=== PATIENT | male | born 1955 | race Caucasian/White ===

== ENCOUNTER → 2021-06-22 10:40 | Outpatient (CLI) | payer SELFPAY | PROVIDERS: PCP Family Medicine; Referring Provider Dermatology; Visit Provider Dermatology | DX: L40.0 Psoriasis vulgaris (principal) | CPT/HCPCS: 36415; 86480 ==

== ENCOUNTER → 2021-08-24 10:20 | Outpatient (CLI) | payer SELFPAY ==
[2021-09-01 00:07] LABS: QNTFERON TB Mitogen Value > 10.00 IU/mL (.); QNTFERON TB Nil Value 0.05 IU/mL (.); QNTFERON TB1+ Ag Value 0.05 IU/mL (.); QNTFERON TB2+ Ag Value 0.05 IU/mL (.)
[2021-09-01 14:00] LABS: QNTIFERON TB Positive Criteria Negative (Negative)
== END ==
LOC: MTLAB 10:22
PROVIDERS: PCP Family Medicine; Referring Provider Dermatology; Visit Provider Dermatology
DX: L40.0 Psoriasis vulgaris (principal)
CPT/HCPCS: 86480

== ENCOUNTER → 2024-06-11 | Outpatient (CLI) | payer OTHER, SELFPAY | END | disposition home or self-care (01) | PROVIDERS: PCP Family Medicine; Referring Provider Urology; Visit Provider Urology | DX: R30.0 Dysuria (principal) | CPT/HCPCS: 87077; 87086; 87088; 87186 ==

== ENCOUNTER → 2024-07-23 | Outpatient (CLI) | payer OTHER, SELFPAY ==
[2024-07-23 12:40] LABS: PSA,Total - Annual Screen 2.56 ng/mL (0.00-4.00)
== END | disposition home or self-care (01) ==
PROVIDERS: PCP Family Medicine; Referring Provider Nurse Practitioner; Visit Provider Nurse Practitioner
DX: Z12.5 Encounter for screening for malignant neoplasm of prostate (principal)
CPT/HCPCS: 36415; 84153; G0103

== ENCOUNTER → 2024-07-29 | Outpatient (CLI) | payer OTHER, SELFPAY ==
--- NOTE | 2024-07-29 13:10 | RAD_ITS ---
STUDY: X-RAY CHEST REASON FOR EXAM: Male, 68 years old. SOB TECHNIQUE: PA and lateral views of the chest. COMPARISON: None. FINDINGS: The lungs are clear and expanded. There is no demonstrated pleural abnormality. Normal size heart. Normal mediastinum and tammy. Normal visualized pulmonary arteries. Normal visualized aortic arch and descending thoracic aorta. Normal visualized thoracic spine. Normal visualized ribs, clavicles, and shoulders. There is no demonstrated abnormality of the visualized soft tissue structures of the upper abdomen. RAD/Chest PA and Lateral IMPRESSION: Normal x-ray examination of the chest. Electronically Signed: Cezar Wolfe MD at 14:10 EDT ,
== END | disposition home or self-care (01) ==
LOC: RAD.FUTURE 12:52 → RAD 12:53
PROVIDERS: PCP Family Medicine; Referring Provider Nurse Practitioner Family; Visit Provider Nurse Practitioner Family
DX: R06.02 Shortness of breath (principal); R22.2 Localized swelling, mass and lump, trunk
CPT/HCPCS: 71046

== ENCOUNTER 2024-08-13 09:27 | Day surgery (SDC) | payer SELFPAY, OTHER ==
[2024-08-13] VITALS (8 sets, daily range): BP systolic 79–142; BP diastolic 54–81; PULSE 72–85; RESP 16; TEMP 36.3–36.9; O2SAT 92–95; BMI 35.7
--- NOTE | 2024-08-13 | COLBX_PTH ---
PATIENT: IBETH RAGSDALE LOC: EN U#:[id number] AGE/SX: 68/M ROOM: RE08/13/[address]: Dr. Blue Hargrove MD : 1955 BED: DIS: 08/13/2024 SPEC #: [id number] RECD: 08/13/24 13:14 STATUS: RODRÍGUEZ CHANEYLuke #: [id number] ZAYNAB: 08/13/24 00:[address]: Blue Hargrove DEPT: SURGICAL PATHOLOGY RECD BY: Andre Phillips ENTERED: 08/13/24 13:15 SP TYPE: COLON BX OTHR DR: Dr. Yossi Rucker DO Tissues: A - Cecum, NOS B - Ascending colon C - Descending colon D - Sigmoid colon biopsy Procedures: Surgery Specimen Level IV HEADER OPERATION: Colonoscopy with biopsy and polypectomy PRE-OP DIAGNOSIS: Encounter for screening for malignant neoplasm of colon TISSUE SUBMITTED: A- Cecal polyps x4, B- Ascending colon polyp biopsy, C- Descending colon polyp, D- Sigmoid polyp biopsy x2 MICROSCOPIC DIAGNOSIS A. Cecal polyps x4, polypectomy: Fragments of tubular adenoma. B. Ascending colon polyp, biopsy: Fragments of tubular adenoma. C. Descending colon polyp, polypectomy: Fragments of tubular adenoma. D. Sigmoid polyps x2, biopsy: Fragments of hyperplastic polyp. 08/14 MICROSCOPIC DESCRIPTION Slides are reviewed. GROSS DESCRIPTION A. Received in fixative is one container labeled with the patient's name and designated Cecal polyp x 4 biopsy. The specimen consists of multiple irregular fragments of light swann soft tissue that in aggregate measure 2.0 x 0.5 x 0.1 cm. The specimen is totally submitted in one cassette. B. Received in fixative is one container labeled with the patient's name and designated Ascending colon polyp biopsy. The specimen consists of multiple irregular fragments of light swann soft tissue that in aggregate measure 0.6 x 0.3 x 0.1 cm. The specimen is totally submitted in one cassette. C. Received in fixative is one container labeled with the patient's name and designated Descending colon polyp biopsy. The specimen consists of two swann-pink polyps measuring 0.3 x 0.3 x 0.1cm and 0.7 x 0.5 x 0.3cm. The entire specimen is submitted in one cassette. D. Received in fixative is one container labeled with the patient's name and designated Sigmoid polyp biopsy. The specimen consists of multiple irregular fragments of light swann soft tissue that in aggregate measure 1.0 x 0.5 x 0.1 cm. The specimen is totally submitted in one cassette. SJ 08/13/2024 TC:1 CPT:42198z8
--- NOTE | 2024-08-13 10:27 | PCM.PRE.AN2 ---
ASA Classification* ASA Classification ASA Classification: 2 Assessment & Plan Anesthesia* Anesthesia Assessment Anesthesia Assessment: Discussed sedation and/or anesthesia options, risks, benefits, and alternatives with patient/parents/legal guardian/POA. Questions invited. The patient/parents/legal guardian/POA seems to understand and agrees to proceed with anesthesia plan. Reviewed the physical assessment, medical history, allergy history and patient home medications list prior to surgery/procedure/anesthetic and documented any changes. Performed airway and anesthesia risk assessments. Anesthesia Type Anesthesia Type: MAC History Source History Obtained from:: Patient and Chart Anesthesia Focused Assessment* Temperature: 98.5 F Pulse Rate: 72 Blood Pressure: 142/81 Respiratory Rate: 16 Pulse Ox: 93 Oxygen Delivery Method: Room Air Airway Assessment Mouth opens: >3 cm Mallampati Score: II Teeth Condition: Chipped/Broken (Several chipped teeth.) Neck Range of motion (ROM): Limited ROM (Somewhat decreased extension) Focused Labs Anesthesia Preop lab: CBC CHEMISTRY COAG Pre-Assessment Diagnosis/Proposed Procedure Planned Operative Procedure(s): colonoscopy Anesthesia History Anesthesia History - toggle press folder and feeder: Anesthesia History - toggle press folder and feeder Hx Hospitalization No 08/13/24 09:51 Any Problems With Anesthesia No 08/13/24 09:51 Cholinesterase deficiency No 08/13/24 09:51 You/Your Family Experience fever (hyperthermia) with Relationship Recent Exposure to Contagious No 08/13/24 09:58 Disease Does patient have nerve No 08/13/24 09:51 stimulator Patient instructed to have device shut off --Does patient have Pacemaker No 08/13/24 09:58 or ICD? When Was Last Pacemaker Check QUESTION #4 FULL TEXT: You/Your Family Experience fever (hyperthermia) with Anesthesia Last Oral Intake Last Oral intake: Last Oral Intake NPO since 07:00 08/13/24 09:58 Meds taken in AM with sips of Yes 08/13/24 09:58 water? Meds patient instructed to take am of surgery PONV PONV - toggle press folder and feeder: PONV - toggle press folder and feeder Female No 08/13/24 09:51 HX of Motion Sickness No 08/13/24 09:51 HX of N/V After Surgery Yes 08/13/24 09:51 Non-Smoker No 08/13/24 09:51 Duration of Surgery greater No 08/13/24 09:51 than 60 minutes Number of Risk Factors 1 08/13/24 09:51 PONV Score Low Risk 08/13/24 09:51 Height & Weight Height & Weight: Anesthesia: Height & Weight Height 5 ft 10 in 08/13/24 09:58 Weight: 113 kg 08/13/24 09:58 Body Mass Index (BMI) 35.7 08/13/24 09:58 Respiratory Assessment Respiratory Assessment - toggle press folder and feeder: Respiratory Tract Infection Hx - toggle press folder and feeder Hx Respiratory Tract Infection No 08/13/24 09:51 STOP Sleep Apnea STOP Sleep Apnea - toggle press folder and feeder: STOP Sleep Apnea - toggle press folder and feeder Hx Hypertension Yes 08/13/24 09:51 Hx Sleep Apnea Yes 08/13/24 09:51 CPAP No 08/13/24 09:51 BIPAP Yes 08/13/24 09:51 Do you snore loudly (louder than talking or can be heard Do you often feel tired/ fatigued/ sleepy during daytime? Has anyone observed you stop breathing during sleep? STOP Results Positive 08/13/24 09:51 QUESTION #5 FULL TEXT : Do you snore loudly (louder than talking or can be heard through closed doors)? Tobacco Use History Tobacco Use History - toggle press folder and feeder: Tobacco Use History - toggle press folder and feeder Tobacco Use Smoking Status Never smoker 08/13/24 09:51 Hx Tobacco Use No 08/13/24 09:51 Years Smoking Packs Smoked per Day Smoking Cessation Date was within the last 15 years Hx Smoking Cessation Date Hx Smoking Cessation Counseling Hematologic Medial History Hematologic Hx - toggle press folder and feeder: Hematologic Medical Hx - hand shaper Hx of Blood Transfusion No 08/13/24 09:51 Hx of Transfusion in last 3 No 08/13/24 09:51 Months Date of Last Transfusion (if within last 3 months) Ever experience any problems No 08/13/24 09:51 with transfusion(s)? Specify any problems Hx of Preganancy in last 3 N/A 08/13/24 09:51 Months Nurse Filling Out Transfusion CPARSONS 08/13/24 09:51 & Questions: Date: 08/13/24 08/13/24 09:51 Time: 09:55 08/13/24 09:51 Patient unable to answer at this time (ie. confused, unrespo /Reproduction History /Reproductive History - toggle press folder and feeder: /Reproductive Hx- toggle press folder and feeder Hx Now No 08/13/24 09:51 Gestational Age (in weeks): EDC: Hx Hx Para Hx Section SAB No 08/13/24 09:51 FORMERLY [facility], 1928–1983 Medical History Heartburn Diabetes Asthma HTN (hypertension) Home Medications ?Medication ?Instructions ?Recorded ?Last Taken ?Type hydrochlorothiazide 25 mg tablet 25 mg PO QAM 07/29/24 Unknown History lisinopril 20 mg tablet 20 mg PO QDAY 07/29/24 08/13/24 History metformin 500 mg tablet 500 mg PO TID 07/29/24 Unknown History Allergy/AdvReac Type Severity Reaction Status Date / Time No Known Allergies Allergy Verified 08/13/24 09:48 Family History Brother Diabetes Brother Hypertension CVA (cerebral vascular accident) Surgical History History of left knee replacement Social History Smoking Status: Never smoker alcohol intake: never Review of Systems (Anesthesia) ROS Narrative System reviewed and no additional complaints, except as documented.
[2024-08-13 10:31] LABS: Bedside Glucose 145 mg/dL (74-106)
--- NOTE | 2024-08-13 10:50 | PCM.HP.STD ---
HPI - General General Date of Admission: 08/13/24 Date of Service: 08/13/24 Chief Complaint: Screening colonoscopy HPI Narrative IBETH RAGSDALE, is a 68 M who presents for elective screening colonoscopy. He does have some issues with constipation. No prior colonoscopy. It sounds as though his sister had colon cancer. He denies any blood in his stools or black tarry stools. [facility] Medical History Heartburn Diabetes Asthma HTN (hypertension) Home Medications ?Medication ?Instructions ?Recorded ?Last Taken ?Type hydrochlorothiazide 25 mg tablet 25 mg PO QAM 07/29/24 Unknown History lisinopril 20 mg tablet 20 mg PO QDAY 07/29/24 08/13/24 History metformin 500 mg tablet 500 mg PO TID 07/29/24 Unknown History Allergy/AdvReac Type Severity Reaction Status Date / Time No Known Allergies Allergy Verified 08/13/24 09:48 Family History Brother Diabetes Brother Hypertension CVA (cerebral vascular accident) Surgical History History of left knee replacement Social History Smoking Status: Never smoker alcohol intake: never Vital Signs Vital Signs Vital Signs: 08/13/24 09:58 08/13/24 09:58 08/13/24 10:34 Temperature 98.5 F 98.5 F Temperature Source Temporal Pulse Rate 72 72 Respiratory Rate 16 16 Respiratory Pattern Normal Blood Pressure 142/81 H 142/81 H Blood Pressure Mean 101 Blood Pressure Source Monitor Blood Pressure Position Semi-Fowlers Blood Pressure Location Right Arm Pulse Ox 93 93 Oxygen Delivery Method Room Air Room Air Weight Weight: 249 lb 1.957 oz Body Mass Index (BMI) 35.7 Physical Exam Narrative He is alert and oriented x 3. He is in no acute distress. Head is normocephalic and atraumatic. Pupils are equal round react to light. Abdomen is soft, nontender nondistended. Results Lab / Micro Data Labs: Laboratory Results - last 24 hr 08/13/24 10:11: POC Glucose 145 H Assessment & Plan Assessment/Plan (1) Encounter for screening for malignant neoplasm of colon: PLAN: Plan The patient is a 68-year-old male with a family history of colon cancer. Have recommended a colonoscopy. We discussed the details of the planned procedure including risks benefits and alternatives. He wishes to proceed. This will begin momentarily Charges/Coding Visit Charges Inpatient E&M: 84759 Init Hosp L1
--- NOTE | 2024-08-13 11:42 | PCM.POST.ANE ---
Anesthesia: Postop Eval I Current Vital Signs Temperature: 97.3 F Pulse Rate: 81 Blood Pressure: 95/65 Respiratory Rate: 16 Pulse Ox: 95 Oxygen Delivery Method: Room Air Assessment Airway patent: Yes Spontaneous unlabored respirations: Yes Mental status: Awake and Calm nausea: No Vomiting: No Anesthesia Complication: No Fluid Hydration Crystalloid volume administer (ml): 40 Total IV fluid infused: 40 Progress Note Anesthesia document: Postop Eval 1 completed: Yes
--- NOTE | 2024-08-13 11:43 | OP.CCLET_ITS ---
08/13/2024 Yossi Rucker Re : Colonoscopy procedure for Jeison Rand Dear Chaim This procedure was performed on Tuesday, August 13, 2024. My impressions and recommendations are as follows: Impressions : - Non-bleeding hemorrhoids. - Four 3 to 6 mm polyps in the cecum, removed with a cold biopsy forceps. Resected and retrieved. - One 3 mm polyp in the ascending colon, removed with a cold biopsy forceps. Resected and retrieved. - One 8 mm polyp in the descending colon, removed with a hot snare. Resected and retrieved. - Two 3 to 4 mm polyps in the sigmoid colon, removed with a cold biopsy forceps. Resected and retrieved. - The examination was otherwise normal on direct and retroflexion views. Recommendations : - Discharge patient to home. - High fiber diet indefinitely. - Await pathology results. - Repeat colonoscopy in 3 - 5 years for surveillance. - Return to my office PRN. - Continue present medications. My findings are described in the full procedure note, which is enclosed. If I can be of further assistance, please feel free to contact me at . Sincerely, Blue Hargrove MD 08/13/2024 11:42:49 AM This report has been signed electronically.
--- NOTE | 2024-08-13 11:43 | OP.COLON_ITS ---
Patient Name: Jeison Rand Procedure Date: 08/13/2024 10:28 AM Date of : 1955 Age: 68 Procedure: Colonoscopy Indications: Screening in patient at increased risk: Family history of 1st-degree relative with colorectal cancer Providers: Blue Hargrove MD Medicines: Monitored Anesthesia Care Patient Profile: Refer to note in patient chart for documentation of history and physical. Last Colonoscopy: none. The patient's first colonoscopy is today. Refer to note in patient chart for documentation of history and physical. Complications: No immediate complications. Estimated blood loss: Minimal. Procedure: Pre-Anesthesia Assessment: - Prior to the procedure, a History and Physical was performed, and patient medications and allergies were reviewed. The patient's tolerance of previous anesthesia was also reviewed. The risks and benefits of the procedure and the sedation options and risks were discussed with the patient. All questions were answered, and informed consent was obtained. Prior Anticoagulants: The patient has taken no anticoagulant or antiplatelet agents. ASA Grade Assessment: II - A patient with mild systemic disease. After reviewing the risks and benefits, the patient was deemed in satisfactory condition to undergo the procedure. After I obtained informed consent, the scope was passed under direct vision. Throughout the procedure, the patient's blood pressure, pulse, and oxygen saturations were monitored continuously. The adult colonoscope was introduced through the anus and advanced to the cecum, identified by appendiceal orifice and ileocecal valve. The ileocecal valve, appendiceal orifice, and rectum were photographed. The entire colon was well visualized. The colonoscopy was performed without difficulty. The patient tolerated the procedure well. The quality of the bowel preparation was adequate. Moderate Sedation: See the other procedure note for documentation of moderate sedation with intraservice time. Scope In: 11:02:33 AM Scope Withdrawal Time 0 hours 21 minutes 46 seconds Scope Out: 11:31:54 AM Total Procedure Duration Time 0 hours 29 minutes 21 seconds Findings: The perianal and digital rectal examinations were normal. Pertinent negatives include normal sphincter tone. Non-bleeding hemorrhoids were found during retroflexion. The hemorrhoids were moderate. Four semi-pedunculated polyps were found in the cecum. The polyps were 3 to 6 mm in size. These polyps were removed with a cold biopsy forceps. Resection and retrieval were complete. Verification of patient identification for the specimen was done by the nurse using the patient's name, date and medical record number. Estimated blood loss was minimal. A 3 mm polyp was found in the ascending colon. The polyp was semi-sessile. The polyp was removed with a cold biopsy forceps. Resection and retrieval were complete. Verification of patient identification for the specimen was done by the nurse using the patient's name, date and medical record number. Estimated blood loss was minimal. An 8 mm polyp was found in the descending colon. The polyp was semi-pedunculated. The polyp was removed with a hot snare. Resection and retrieval were complete. Verification of patient identification for the specimen was done by the nurse using the patient's name, date and medical record number. Two sessile polyps were found in the sigmoid colon. The polyps were 3 to 4 mm in size. These polyps were removed with a cold biopsy forceps. Resection and retrieval were complete. Verification of patient identification for the specimen was done by the nurse using the patient's name, date and medical record number. Estimated blood loss was minimal. The exam was otherwise without abnormality on direct and retroflexion views. Impression: - Non-bleeding hemorrhoids. - Four 3 to 6 mm polyps in the cecum, removed with a cold biopsy forceps. Resected and retrieved. - One 3 mm polyp in the ascending colon, removed with a cold biopsy forceps. Resected and retrieved. - One 8 mm polyp in the descending colon, removed with a hot snare. Resected and retrieved. - Two 3 to 4 mm polyps in the sigmoid colon, removed with a cold biopsy forceps. Resected and retrieved. - The examination was otherwise normal on direct and retroflexion views. Recommendation: - Discharge patient to home. - High fiber diet indefinitely. - Await pathology results. - Repeat colonoscopy in 3 - 5 years for surveillance. - Return to my office PRN. - Continue present medications. Procedure Code(s): --- Professional --- 90268, Colonoscopy, flexible; with removal of tumor(s), polyp(s), or other lesion(s) by snare technique 71716, 59, Colonoscopy, flexible; with biopsy, single or multiple Diagnosis Code(s): --- Professional --- Z80.0, Family history of malignant neoplasm of digestive organs K64.9, Unspecified hemorrhoids D12.0, Benign neoplasm of cecum D12.5, Benign neoplasm of sigmoid colon D12.4, Benign neoplasm of descending colon D12.2, Benign neoplasm of ascending colon CPT copyright 2021 [employer]. All rights reserved. The codes documented in this report are preliminary and upon icd 9 coder review may be revised to meet current compliance requirements. Blue Hargrove MD 08/13/2024 11:42:49 AM This report has been signed electronically. Number of Addenda: 0 Note Initiated On: 08/13/2024 10:28 AM
--- NOTE | 2024-08-13 17:13 | PCM.POSTANE2 ---
Anesthesia Postop Eval I Sum Postop Eval Completion status Anesthesia document: Postop Eval 1 completed: Yes Anesthesia Postop Eval I Summary Anesthesia Postop Eval I Summary: Anesthesia Postop Eval I: Assessment Summary Airway patent Yes 08/13/24 11:43 [email or web address] Spontaneous unlabored Yes 08/13/24 11:43 [email or web address] respirations Mental status Awake,Calm 08/13/24 11:43 [email or web address] nausea No 08/13/24 11:43 [email or web address] Vomiting No 08/13/24 11:43 [email or web address] Anesthesia Postop Eval I: Fluid Summary Crystalloid volume administer 40 08/13/24 11:43 [email or web address] (ml) Colloids volume administered ( ml) Blood Product volume administered (ml) Total IV fluid infused 40 08/13/24 11:43 [email or web address] Anesthesia Postop Eval I: Summary Notes Anesthesia Complication No 08/13/24 11:43 [email or web address] Anesthesia Complication Comment: Post-operative progress note Anesthesia: Postop Eval II Evaluation Mental status: Awake Pain Level: 0 nausea: No Vomiting: No
== END 2024-08-13 12:42 | disposition home or self-care (01) ==
LOC: EN 09:35 → AC 09:36
PROVIDERS: PCP Family Medicine; Referring Provider Family Medicine; Visit Provider Surgery
PROC: 0DJD8ZZ Inspection of Lower Intestinal Tract, Via Natural or Artificial Opening Endoscopic (ICD-10-PCS; CPT 45378; principal; 2024-08-13 10:40)
DX: Z12.11 Encounter for screening for malignant neoplasm of colon (principal); E11.9 Type 2 diabetes mellitus without complications; D12.0 Benign neoplasm of cecum; D12.2 Benign neoplasm of ascending colon; D12.4 Benign neoplasm of descending colon; D12.5 Benign neoplasm of sigmoid colon; I10 Essential (primary) hypertension; K64.9 Unspecified hemorrhoids; Z79.84 Long term (current) use of oral hypoglycemic drugs; Z79.899 Other long term (current) drug therapy; Z80.0 Family history of malignant neoplasm of digestive organs
CPT/HCPCS: 45380; 45385; 82962; 88305; A4216; J2405

== ENCOUNTER → 2025-03-07 | Outpatient (CLI) | payer SELFPAY | END | disposition home or self-care (01) | PROVIDERS: PCP Family Medicine; Referring Provider Nurse Practitioner Family; Visit Provider Nurse Practitioner Family | DX: R06.02 Shortness of breath (principal) | CPT/HCPCS: 94060; 94726; 94729 ==

== ENCOUNTER → 2025-03-10 | Outpatient (CLI) | payer SELFPAY, OTHER | END | disposition home or self-care (01) | PROVIDERS: PCP Family Medicine; Referring Provider Nurse Practitioner Family; Visit Provider Nurse Practitioner Family | DX: G47.33 Obstructive sleep apnea (adult) (pediatric) (principal) | CPT/HCPCS: 95811 ==

== ENCOUNTER → 2025-03-25 | Outpatient (CLI) | payer SELFPAY, OTHER ==
--- NOTE | 2025-03-25 15:05 | CT_ITS ---
PROCEDURE: CHEST WITHOUT CONTRAST 03/25/2025 REASON FOR EXAM: SHORTNESS OF BREATH, NON SMOKER, NORMAL XRAY TECHNIQUE: Chest CT without contrast. Coronal and Sagittal reconstruction series were provided. One or more dose reduction techniques were used (e.g., Automated exposure control, adjustment of the mA and/or kV according to patient size, use of iterative reconstruction technique RADIATION DOSE SUMMARY: CTDlvol: 20.1 mGy DLP: 742 mGycm COMPARISON: Chest radiographs on 07/29/2024 FINDINGS: Hardware: None Lymph nodes: No thoracic lymphadenopathy. Heart and Vasculature: Normal heart size. Qxmr-ut-[id number] coronary calcifications. Enlarged main pulmonary artery measuring 3.4 cm in diameter. Ascending thoracic aorta measures 3.8 cm in diameter. Lungs and Airways: Central airways are clear. No focal consolidation. Pleura: No effusion. Upper Abdomen: A hypodense lesion arising from the right kidney is partially imaged and measures fluid density. Bones: No displaced rib fracture. There are several healed left-sided anterolateral rib fractures. Degenerative changes of the thoracic spine. Chest wall: Right-sided gynecomastia. CT/Chest without Contrast IMPRESSION: 1. Right-sided gynecomastia. Otherwise, there is no displaced rib fracture or other finding to account for the reported symptoms. 2. Enlarged main pulmonary artery, suggestive of pulmonary hypertension. 3. [id number] coronary calcifications. Reading Location: [id number]
== END | disposition home or self-care (01) ==
PROVIDERS: PCP Family Medicine; Referring Provider Nurse Practitioner Family; Visit Provider Nurse Practitioner Family
DX: R06.02 Shortness of breath (principal)
CPT/HCPCS: 71250

== ENCOUNTER → 2025-05-26 | Outpatient (CLI) | payer OTHER, SELFPAY ==
--- NOTE | 2025-05-26 10:38 | ECHOCS_ITS ---
Reason For Study Reason For Study: SOB Procedure This was a 2D Doppler, Color Flow transthoracic echocardiogram. The study was technically difficult. Exam performed in department. Left Ventricle Normal LV size. The left ventricular ejection fraction is 40 %. Stage 1 diastolic dysfunction. There is mild to moderate global hypokinesis of the left ventricle. Right Ventricle Normal RV size. Normal systolic function. Atria Bubble contrast study is negative for PFO/ASD. Mitral Valve Mild (1+) eccentric mitral valve insufficiency. Tricuspid Valve Normal tricuspid valve. Aortic Valve Trisinus/trileaflet aortic valve. Pulmonic Valve The pulmonic valve is not well visualized. Great Vessels Normal aortic root. The pulmonary artery is normal size. Inferior vena cava collapse with respiration. Pericardium/Pleural No pericardial effusion. Medication 22 gauge I.V. with prn adaptor inserted into right arm. Performed a rapid injection of agitated mix of 9 cc saline and 1cc air to assess for atrial septal defect. Diluted definity 2.0ml given slow IV push to enhance endocardial definition. MMode/2D Measurements & Calculations LVIDd: 5.6 cm IVSd: 1.0 cm Ao root diam: 3.7 cm LVIDs: 4.1 cm LVPWd: 1.2 cm RVDd: 4.1 cm FS: 26.9 % LAV(MOD-bp): 65.7 ml LVAd ap4: 45.5 cm2 LVAd ap2: 44.7 cm2 LAV(MOD-bp) Indexed: 27.7 ml/m2 LVLd ap4: 9.7 cm LVLd ap2: 9.6 cm LAV(MOD-sp2): 56.9 ml EDV(MOD-sp4): 174.0 ml EDV(MOD-sp2): 176.2 ml LAV(MOD-sp4): 65.5 ml EDV(sp4-el): 182.1 ml EDV(sp2-el): 177.1 ml LVAs ap4: 29.5 cm2 LVAs ap2: 34.2 cm2 LVLs ap4: 8.1 cm LVLs ap2: 9.4 cm ESV(MOD-sp4): 89.2 ml ESV(MOD-sp2): 108.5 ml ESV(sp4-el): 91.2 ml ESV(sp2-el): 105.7 ml EF(MOD-sp4): 48.7 % EF(MOD-sp2): 38.5 % EF(sp4-el): 49.9 % SV(MOD-sp4): 84.8 ml SV(MOD-sp2): 67.8 ml SV(sp4-el): 90.9 ml SI(MOD-sp4): 35.8 ml/m2 SI(MOD-sp2): 28.6 ml/m2 LA A4 area: 22.8 cm2 LA dimension(2D): 3.9 cm RA A4 area: 19.8 cm2 TAPSE: 2.3 cm Doppler Measurements & Calculations MV E max papito: 60.7 cm/sec Lat Peak E' Papito: 9.4 cm/sec Med Peak E' Papito: 6.7 cm/sec MV A max papito: 104.7 cm/sec E/E' lat: 6.4 E/E' med: 9.0 MV E/A: 0.58 Ao V2 max: 161.6 cm/sec LV V1 max: 135.9 cm/sec PA V2 max: 79.4 cm/sec Ao max P.4 mmHg LV V1 max P.4 mmHg Ao V2 mean: 116.8 cm/sec LV V1 mean P.3 mmHg Ao mean P.2 mmHg LV V1 mean: 96.2 cm/sec Ao V2 VTI: 38.3 cm LV V1 VTI: 27.7 cm AV (velocity ratio): 0.72 ECHO/Echo Complete W/ Contrast Interpretation Summary The left ventricular ejection fraction is 40 %. Normal LV size. Stage 1 diastolic dysfunction. There is mild to moderate global hypokinesis of the left ventricle. Contrast injection was performed. Ordering Physician: Jessica Seaman Referring Physician: Yossi Rucker Performed By: Elvira Davila RDCS
== END | disposition home or self-care (01) ==
PROVIDERS: PCP Family Medicine; Referring Provider Nurse Practitioner Family; Visit Provider Nurse Practitioner Family
DX: R06.02 Shortness of breath (principal)
CPT/HCPCS: 93306; Q9957; A4216; C8929

== ENCOUNTER 2025-06-13 10:18 | Inpatient (IN) | payer OTHER, SELFPAY ==
[2025-06-13] VITALS (16 sets, daily range): BP systolic 114–158; BP diastolic 40–90; PULSE 30–47; RESP 14–18; TEMP 36.6–36.8; O2SAT 94–100; BMI 37.5; BMI 37.4
--- NOTE | 2025-06-13 10:20 | EKG12_ITS ---
Test Reason : CHRISTOPHER Blood Pressure : */* mmHG Vent. Rate : 39 BPM Atrial Rate : 79 BPM P-R Int : 244 ms QRS Dur : 104 ms QT Int : 520 ms P-R-T Axes : 43 59 76 degrees QTcB Int : 418 ms Critical Test Result: Low HR , AV Block Sinus rhythm with 2nd degree A-V block with 2:1 A-V conduction ST & T wave abnormality, consider anterior ischemia Abnormal ECG No previous ECGs available Confirmed by INDIGO LEW, NAHEED ([id number]), research editor JAIME ELDER ([id number]) on 06/16/2025 6:33:55 AM Referred By: LOS/CHAYO Confirmed By: NAHEED SOOD MD
--- NOTE | 2025-06-13 10:41 | ED.VIS.DYS ---
HPI History of Present Illness Chief Complaint: Shortness of Breath [facility] Medical History Heartburn Diabetes Asthma HTN (hypertension) Home Medications ?Medication ?Instructions ?Recorded ?Last Taken ?Type lisinopril 20 mg tablet 20 mg PO QDAY 07/29/24 06/13/25 History metformin 500 mg tablet 500 mg PO TID 07/29/24 06/13/25 History tamsulosin 0.4 mg capsule 0.4 mg PO QHS 02/19/25 06/12/25 History Allergy/AdvReac Type Severity Reaction Status Date / Time No Known Allergies Allergy Verified 06/13/25 10:19 Family History Brother Diabetes Brother Hypertension CVA (cerebral vascular accident) Surgical History History of left knee replacement Social History Smoking Status: Never smoker alcohol intake: never EXAM Physical Exam Const Vital Signs: 06/13/25 10:18 06/13/25 10:18 06/13/25 11:00 Temperature 98.3 F Temperature Source Oral Pulse Rate 40 L 47 L Respiratory Rate 18 Respiratory Effort Normal Respiratory Depth Normal Respiratory Pattern Normal Blood Pressure 158/64 H Blood Pressure Mean 95 Pulse Ox 95 Oxygen Delivery Method Room Air Room Air 06/13/25 11:18 06/13/25 12:00 06/13/25 13:00 Temperature Temperature Source Pulse Rate 38 L 37 L 47 L Respiratory Rate 16 16 17 Respiratory Effort Respiratory Depth Respiratory Pattern Blood Pressure 129/63 H 133/55 H 151/62 H Blood Pressure Mean 85 81 91 Pulse Ox 98 98 98 Oxygen Delivery Method Room Air Room Air 06/13/25 13:07 Temperature Temperature Source Pulse Rate 47 L Respiratory Rate 17 Respiratory Effort Respiratory Depth Respiratory Pattern Blood Pressure 151/62 H Blood Pressure Mean 91 Pulse Ox 98 Oxygen Delivery Method MDM MDM MDM Narrative Medical decision making narrative: HISTORY OF PRESENT ILLNESS: Chief complaint: Shortness of breath, cough 69-year-old male history of AXEL hypertension, type 2 diabetes presents with shortness of breath and cough for 10 days. Cough is productive of white-yellow sputum. Notes some chest discomfort with cough but denies chest pain currently. Notes is worse with exertion. Denies lower extremity swelling. Denies bleeding diathesis. The patient denies recent surgery in the last 4 weeks or immobilization in the last 3 days, denies previous diagnosis of DVT or PE, hemoptysis, unilateral leg swelling or malignancy with treatment the last 6 months or palliative. No estrogen use noted. REVIEW OF SYSTEMS: Pertinent positives: Shortness of breath, cough Pertinent negatives: As per HPI PHYSICAL EXAM: Nursing triage notes reviewed, Vital signs reviewed Constitutional: please see mdm HENT: MMM Eyes: Pupils equal round and reactive to light, Extraocular muscles intact Neck: No stridor, no JVD, full neck ROM Lungs: Clear to auscultation, No wheezing or rales. No increased work of breathing, no conversational dyspnea, no accessory muscle use, no nasal flaring. No respiratory distress noted Heart: Regular rate and rhythm, No murmurs, No rubs and No gallops, 2+ distal pulses (radial, femoral, posterior tibial) in all extremities Abdomen: Soft, there is no tenderness, rigidity, rebound or guarding, no obvious peritoneal signs, no palpable pulsatile abdominal masses, no auscultated abdominal bruit : No CVAT Extremities: No edema Neuro: No new focal neurological deficits, cranial nerves II through XII intact, 5/5 strength in all present extremities. Intact sensation to light touch in all present extremities, 2+ reflexes bilateral patella tendons. Skin: No rash or lesions noted MEDICAL DECISION MAKING: Chief Complaint: please see HPI External records reviewed: Reviewed prior imaging studies: Reviewed CT scan of the chest from March 2025 which shows possible pulmonary hypertension. Reviewed echocardiogram from May 2025 which shows ejection fraction 40%, stage I diastolic dysfunction, moderate hypokinesis of left ventricle, Factors affecting care: As per HPI Social determinants of health: none History obtained from others: none Consults: Cardiology (Dr. Espinoza) [facility] Narrative: The patient was initially hemodynamically stable, bradycardic with heart rate initially 40 improving spontaneously 47, afebrile and nontoxic-appearing saturating 95% room air. Exam with clear lungs. No stigmata of CHF or VTE I considered the following differential diagnosis: Pneumonia, viral illness, anemia, electrolyte disturbance, arrhythmia, ACS, PE While I considered pulmonary embolism the patient had a low risk Wells score and as such have a low suspicion for PE at this time. No indication for CTA or D-dimer at this time. I obtained a broad lab and imaging workup to further determine if the patient was suffering from a life-threatening etiology. ALL IMAGES (IF OBTAINED) HAVE BEEN PERSONALLY REVIEWED AND INTERPRETED BY MYSELF. EKG with second-degree AV block (Mobitz type II), normal axis, no obvious ischemic changes or STEMI noted BNP within normal limits suggesting no heart failure CBC without leukocytosis, severe anemia, no thrombocytopenia. High-sensitivity troponin is negative, no evidence of myocardial ischemia Chest x-ray was read reviewed personally so showed evidence of a left lower lobe infiltrate. Radiologist agreed my interpretation. Discussed case with cardiology who recommended admission for catheterization and possible pacemaker placement. Gave IV antibiotics. Patient was transferred from the ED to the [facility] in stable condition. The patient and/or family, caregivers express understanding. The patient and/or family, caregivers agrees with the plan. Shared decision making: I will have a discussion with the patient and or visitors regarding risk/benefits of further testing or admission. They will be made aware of of the risk/benefits inherent in this decision they will be given the opportunity to voice understanding. Total critical care time today provided was at least 35 minutes. This excludes separately billable procedures. Critical care time (if documented) is secondary to the patient having high probability of clinically significant/life threatening deterioration in the patient's condition which required my urgent intervention. Impression: 1. Dyspnea 2. Second-degree AV block 3. Community-acquired pneumonia Dispo: Admit to [facility] This note was generated with too.me dictation software. It may contain incorrect words, spelling, and punctuation that were not noted in review of the chart prior to signing. Lab Data Labs: Laboratory Results - last 24 hr 06/13/25 06/13/25 09:47 12:05 WBC 10.5 RBC 5.19 Hgb 15.2 Hct 46.7 MCV 90.0 MCH 29.3 MCHC 32.5 RDW Std Deviation 43.3 RDW Coeff of Harry 13.2 Plt Count 232 MPV 11.2 Immature Gran % (Auto) 0.300 Neut % (Auto) 70.8 H Lymph % (Auto) 18.9 L [place] % (Auto) 7.9 Eos % (Auto) 1.7 Baso % (Auto) 0.4 Absolute Neuts (auto) 7.4 Absolute Lymphs (auto) 1.98 Nucleated RBC % 0 Sodium 138 Potassium 3.8 Chloride 101 Carbon Dioxide 23.2 Anion Gap 15 BUN 28 H Creatinine 1.26 H Estim Creat Clear Calc 69.49 Est GFR (MDRD) Non-Af 61 BUN/Creatinine Ratio 21.9 H Glucose 147 H Calcium 9.7 Total Bilirubin 0.75 AST 28 ALT 36 Alkaline Phosphatase 65 Troponin T High Sens 21 Troponin T Hi Sens 2 Hr 26 H NT pro BNP II 428 Total Protein 7.1 Albumin 4.0 Globulin 3.1 Albumin/Globulin Ratio 1.3 Radiography Diagnostic Testing: Clinical Impression(s) from Imaging Studies Chest X-Ray 06/13/25 11:11 IMPRESSION: Findings suggestive of atelectasis and/or infiltrate in the posterior medial segment of the left lower lobe. Reading Location: [facility] Discharge Plan Triage Chief Complaint: Shortness of Breath ED Provider: Ramon Nickerson Dx/Rx/DC Orders Primary Care Provider: eKnya Wadsworth NP
--- NOTE | 2025-06-13 11:11 | RAD_ITS ---
PROCEDURE: CHEST 1 VIEW (PORTABLE) 06/13/2025 REASON FOR EXAM: SHORTNESS OF BREATH TECHNIQUE: Frontal view of the chest. COMPARISON: Prior study dated July 29, 2024. FINDINGS: Hardware: EKG electrodes are seen. Heart: Mild cardiomegaly. Lungs: Questionable focal infiltrate in the posterior medial segment of the left lower lobe. Bones: The bones are unremarkable. Other: Degenerative changes of both shoulder joints. I suspect focal calcific tendinitis overlying the right humeral head. RAD/Chest 1 View (Portable) IMPRESSION: Findings suggestive of atelectasis and/or infiltrate in the posterior medial se gment of the left lower lobe. Reading Location: [facility]
[2025-06-13 11:26] LABS: Troponin T High Sensitivity 21 ng/L (<=22)
[2025-06-13 11:30] LABS: AST(SGOT) 28 U/L (<=37); Alanine Aminotransfer ALT/SGPT 36 U/L (<=46); Albumin, Serum 4.0 g/dL (3.4-4.8); Alkaline Phosphatase 65 U/L (40-129); Anion Gap 15 (5-15); BUN 28 mg/dL (4-19); BUN/Creat Ratio 21.9 RATIO (10-20); Calcium,Total 9.7 mg/dL (7.6-11.0); Carbon Dioxide 23.2 mmol/L (21.0-32.0); Chloride 101 mmol/L (98-108); Estimated Creatinine Clearance 69.49 ml/min (50-250); Globulin 3.1 g/dL (2.2-4.2); Glucose 147 mg/dL (70-99); Potassium 3.8 mmol/L (3.3-5.1); Pro- Brain NATRIURETIC PEPTIDE 428 pg/mL (<=900)
[2025-06-13] MEDS: Ceftriaxone 2 GM in 0.9% Normal Saline (50mL MB+) 50 ML IV (12:43)
[2025-06-13 12:47] LABS: Hematocrit 46.7 % (40-54); Hemoglobin 15.2 g/dL (13.0-16.5); Immature Granulocytes Count 0.030 X10^3/uL (0.0-0.0); Mean Corp Hgb Conc 32.5 g/dL (32-36); Mean Corpuscular Volume 90.0 fL (80-94); Mean Platelet Vol. 11.2 fl (6.2-12.0); NRBC Flagged by Analyzer 0 % (0-5); Platelet Count 232 K/mm3 (150-450); RBC Distribution Width CV 13.2 % (11.6-14.6); RBC Distribution Width SD 43.3 fl (35.1-43.9); Red Blood Count 5.19 M/mm3 (4.6-6.2); White Blood Count 10.5 K/mm3 (4.4-11.0)
[2025-06-13 12:56] LABS: Troponin T High Sens 2 HR 26 ng/L (<=22)
--- NOTE | 2025-06-13 13:08 | ED.RN ---
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 prepped and family at bedside.
--- NOTE | 2025-06-13 13:19 | PCM.HP.STD ---
HPI - General General Date of Admission: 06/13/25 Date of Service: 06/13/25 Chief Complaint: Shortness of breath with exertion and productive cough HPI Narrative IBETH RAGSDALE, is a 69 M who presented to [facility] ED on 06/09/2025 with shortness breath with exertion and productive cough. Patient is [place] male, lives at home with his family. Medical history is significant for class II obesity, AXEL, hypertension, type 2 diabetes mellitus and recently diagnosed HFrEF. He follows with our pulmonary office for AXEL and noted that his visit in early April that he been experiencing shortness of breath with exertion for some time. Echo was done on 05/26 that showed EF 40%, stage I diastolic dysfunction, mild to moderate global hypokinesis of the LV, no valvular issues, no other concerning findings. Patient presented today for worsening shortness of breath with exertion and now a productive cough for the past week or so. In the ED today he was found to have Mobitz type II heart block with heart rate in the 30s to 40s. He was normotensive. Was otherwise afebrile and stable on room air at rest. Chest x-ray showed findings suggestive of atelectasis versus infiltrate in the posterior left lower lobe. CBC was benign, no leukocytosis. BMP with creatinine 1.26, baseline unknown, was otherwise benign. BNP normal. Troponin trend 21 > 26. Case was discussed with cardiology who took patient down to the [facility] for left heart catheterization to evaluate for coronary disease. Dr. Espinoza called me shortly after the cath was done and noted patient has no significant coronary artery disease. Admission orders were then placed and patient was taken to the PCU. I saw the patient in the PCU shortly after he arrived there, several family members present. Patient was mildly fatigued appearing but otherwise laying back comfortably in bed, conversing normally, in no acute distress. Denied any chest pain or discomfort, shortness of breath at rest or fever/chills. He tolerated the heart cath well. Denies any lower extremity swelling. Importantly, Dr. Espinoza did note to me that Lyme disease is a possible cause of heart block and should be ruled out for the patient. Patient denies spending much time in the [place] or known tick bites and also denies any recent rashes. However, he does report right knee pain and swelling about 2 weeks ago that came up fairly quickly and then seem to resolve on its own. Has also felt more fatigued than his normal over the past few weeks. No other acute concerns currently. [facility] Medical History Heartburn Diabetes Asthma HTN (hypertension) Home Medications ?Medication ?Instructions ?Recorded ?Last Taken ?Type lisinopril 20 mg tablet 20 mg PO QDAY bp 07/29/24 06/13/25 08:17 History metformin 500 mg tablet 500 mg PO BID diabetes 07/29/24 06/13/25 08:18 History tamsulosin 0.4 mg capsule 0.4 mg PO QHS urine flow 02/19/25 06/12/25 History curlin 1 cap PO DAILY herbal diabetic med 06/13/25 Unknown History Allergy/AdvReac Type Severity Reaction Status Date / Time No Known Allergies Allergy Verified 06/13/25 10:19 Family History Brother Diabetes Brother Hypertension CVA (cerebral vascular accident) Surgical History History of left knee replacement Social History (Updated 06/13/25 @ 14:53 by Maria Dolores Ramos) Smoking Status: Never smoker alcohol intake: never ROS Constitutional Constitutional: Reports fatigue; Denies chills, fever(s) or weakness Eyes Eyes: Denies change in vision Cardiovascular Cardiovascular: Reports dyspnea on exertion; Denies chest pain, edema, lightheadedness or palpitations Respiratory/Chest Respiratory/Chest: Reports cough, productive cough and shortness of breath with exertion; Denies shortness of breath at rest or wheezing Gastrointestinal Gastrointestinal: Denies abdominal pain, constipation, diarrhea, nausea or vomiting Musculoskeletal Musculoskeletal: Denies arthralgias or myalgias Neurologic Neurologic: Denies dizziness, focal weakness, headache(s), numbness or tingling Vital Signs Vital Signs Vital Signs: 06/13/25 10:18 06/13/25 10:18 06/13/25 11:00 Temperature 98.3 F Temperature Source Oral Pulse Rate 40 L 47 L Respiratory Rate 18 Respiratory Effort Normal Respiratory Depth Normal Respiratory Pattern Normal Blood Pressure 158/64 H Blood Pressure Mean 95 Pulse Ox 95 Oxygen Delivery Method Room Air Room Air 06/13/25 11:18 06/13/25 12:00 06/13/25 13:00 Temperature Temperature Source Pulse Rate 38 L 37 L 47 L Respiratory Rate 16 16 17 Respiratory Effort Respiratory Depth Respiratory Pattern Blood Pressure 129/63 H 133/55 H 151/62 H Blood Pressure Mean 85 81 91 Pulse Ox 98 98 98 Oxygen Delivery Method Room Air Room Air 06/13/25 13:07 Temperature Temperature Source Pulse Rate 47 L Respiratory Rate 17 Respiratory Effort Respiratory Depth Respiratory Pattern Blood Pressure 151/62 H Blood Pressure Mean 91 Pulse Ox 98 Oxygen Delivery Method Weight Weight: 118.9 kg Body Mass Index (BMI) 37.5 Physical Exam Const alert, oriented x3 and no apparent distress Constitutional Narrative: Pleasant elderly [place] male, class II obesity, mildly fatigued appearing but otherwise laying back comfortably in bed, conversing normally, in no acute distress. General Appearance: cooperative and comfortable HEENT normocephalic, head/scalp atraumatic, hearing grossly normal bilaterally, nasal mucous membranes and turbinates normal and moist oral mucous membranes Eyes PERRL, EOMs intact bilaterally and conjunctivae normal Neck full ROM Chest inspection of chest normal Resp normal respiratory effort and no use of accessory muscles Resp Narrative: Breathing comfortably on room air at rest. Mildly diminished breath sounds in bilateral lung bases, otherwise good air movement throughout with no wheezing or crackles noted. Cardio no murmurs and peripheral pulses 2+ throughout Cardio Narrative: Bradycardic, regular rhythm. GI normal to inspection, nondistended, normoactive bowel sounds, soft to palpation, non-tender and non-distended Back/Spine normal ROM Extremity normal to inspection, full ROM and no pedal edema Skin no rashes or lesions noted Psych mental status grossly normal Results Lab / Micro Data 06/13/25 09:47 06/13/25 09:47 Labs: Laboratory Results - last 24 hr 06/13/25 09:47: WBC 10.5, RBC 5.19, Hgb 15.2, Hct 46.7, MCV 90.0, MCH 29.3, MCHC 32.5, RDW Std Deviation 43.3, RDW Coeff of Harry 13.2, Plt Count 232, MPV 11.2, Immature Gran % (Auto) 0.300, Neut % (Auto) 70.8 H, Lymph % (Auto) 18.9 L, [place] % (Auto) 7.9, Eos % (Auto) 1.7, Baso % (Auto) 0.4, Absolute Neuts (auto) 7.4, Absolute Lymphs (auto) 1.98, Nucleated RBC % 0, Sodium 138, Potassium 3.8, Chloride 101, Carbon Dioxide 23.2, Anion Gap 15, BUN 28 H, Creatinine 1.26 H, Estim Creat Clear Calc 69.49, Est GFR (MDRD) Non-Af 61, BUN/Creatinine Ratio 21.9 H, Glucose 147 H, Calcium 9.7, Total Bilirubin 0.75, AST 28, ALT 36, Alkaline Phosphatase 65, Troponin T High Sens 21, NT pro BNP II 428, Total Protein 7.1, Albumin 4.0, Globulin 3.1, Albumin/Globulin Ratio 1.3 06/13/25 12:05: Troponin T Hi Sens 2 Hr 26 H Imaging Radiology Impression Chest X-Ray 06/13/25 11:11 IMPRESSION: Findings suggestive of atelectasis and/or infiltrate in the posterior medial segment of the left lower lobe. Reading Location: [id number] Assessment & Plan Assessment/Plan (1) Partial atrioventricular block with 2:1 ratio determined by electrocardiography: PLAN: Plan Patient is a 69-year-old male who presented [facility] ED on 06/13/2025 with worsening shortness of breath with exertion and productive cough. 1. Mobitz type II heart block ? Admit under inpatient status to PCU. Cardiology following. Bradycardic in the ED and EKG consistent with 2:1 AV block. Left heart cath done on admit that showed no significant CAD. Per cardiology, with concern for pneumonia as below and stable blood pressure in setting of 2:1 AV block, will tentatively plan for pacemaker placement on Monday. Lyme disease cannot be ruled out as possible cause; patient with no known tick bite or rash recently but did have unexplained right knee pain a few weeks ago that resolved on its own. Treating with doxycycline as noted below. Continue cardiac monitoring. Lipid panel ordered. Per cardiology, will initiate atorvastatin and plan to initiate baby aspirin on discharge. 2. Concern for community-acquired pneumonia ? Chest x-ray on admit showed findings suggestive of atelectasis versus infiltrate in the posterior left lower lobe, and patient reported cough with yellow sputum for about 1 week. Afebrile, no leukocytosis. Sputum culture ordered. Will empirically treat with p.o. doxycycline given concern for Lyme disease as above. 3. Recently diagnosed HFrEF, hypertension ? Recent echo on 05/26 showed EF 40%, stage I diastolic dysfunction, mild to moderate global hypokinesis of the LV, no valvular issues, no other concerning findings. Normotensive on admit. BNP normal, euvolemic on exam and stable on room air at rest, no concern for heart failure exacerbation. Given heart block as above, will hold home lisinopril for now. Chronic medical conditions: ? Class II obesity with AXEL: Follows with outpatient pulmonology. BMI 37 on admit. Complicates hospital course and care. Continue home PAP therapy at night. ? BPH with obstructive symptoms: Continue home Flomax. ? Type 2 diabetes mellitus: A1c ordered. Blood glucose 145 on admit. Hold home metformin and will treat with sliding scale insulin with meals while inpatient. DVT prophylaxis: Lovenox CODE STATUS: Full code, verified Expected disposition: Home, TBD Total clinical time spent by myself addressing the patient's medical issues, reviewing all the data, and collaborating with patient's care team: 75 minutes. Charges/Coding Visit Charges Inpatient E&M: 53741 Init Hosp L3
--- NOTE | 2025-06-13 14:52 | PCM.CONS.C ---
Assessment & Plan Assessment/Plan (1) Shortness of breath: (2) Bradycardia: (3) Partial atrioventricular block with 2:1 ratio determined by electrocardiography: (4) Chest tightness: (5) LV dysfunction: PLAN: Plan Patient has shortness of breath and also exertional chest tightness. He has LV dysfunction by echo done earlier this month. Patient underwent coronary angiography to see if he has significant CAD that could explain his symptoms and 2-1 AV block. Coronary angiography did not reveal significant CAD. He had mild CAD that can be treated medically. Patient may end up requiring a permanent pacemaker. However he may be having pneumonia at this time and it is reasonable not to proceed with permanent pacemaker today. He may require it later this admission. In view of his LV dysfunction and bradycardia in the absence of CAD it is also reasonable to consider checking for Lyme disease. Recommend starting the patient on aspirin 81 mg p.o. daily and statin. The aspirin can be started at the time of discharge. Once the pneumonia issue is resolved, if the patient continues to have an indication for a pacemaker then we can consider permanent pacemaker placement during this admission. HPI Consult Data Date of Consult: 06/13/25 HPI Narrative Reason for Consultation: Shortness of breath, bradycardia HPI Narrative: IBETH RAGSDALE, is a 69 M who presents with shortness of breath. Patient has been having shortness of breath on and off for few months. Last night it became particularly worse and this morning he went to see his primary care physician who sent him to the ER because of significant bradycardia. Patient was found to have 2:1 AV block with a heart rate of around 36 bpm. Patient states that he has some chest tightness on exertion. His shortness of breath is mainly with exertion. He denies any orthopnea. For the last 10 days patient has been having a cough with yellow sputum. His chest x-ray done today was suspicious for pneumonia. [facility] Medical History Heartburn Diabetes Asthma HTN (hypertension) Home Medications ?Medication ?Instructions ?Recorded ?Last Taken ?Type lisinopril 20 mg tablet 20 mg PO QDAY 07/29/24 06/13/25 History metformin 500 mg tablet 500 mg PO TID 07/29/24 06/13/25 History tamsulosin 0.4 mg capsule 0.4 mg PO QHS 02/19/25 06/12/25 History Allergy/AdvReac Type Severity Reaction Status Date / Time No Known Allergies Allergy Verified 06/13/25 10:19 Family History Brother Diabetes Brother Hypertension CVA (cerebral vascular accident) Surgical History History of left knee replacement Social History Smoking Status: Never smoker alcohol intake: never Physical Exam Const alert and oriented x3 HEENT normocephalic Eyes no scleral icterus Resp normal respiratory effort Cardio regular rate Extremity no pedal edema Charges/Coding Visit Charges Inpatient E&M: 20320 Init Hosp L2 Objective Data Vital Signs: Vital Signs Temp Pulse Resp BP Pulse Ox O2 Del Method 97.8 F 36 L 15 153/69 H 98 Room Air 06/13/25 14:06/13/25 14:06/13/25 14:06/13/25 14:06/13/25 14:06/13/25 14:25 Oxygen Delivery Method Room Air Weight: 260 lb 12.909 oz Body Mass Index (BMI) 37.4 Lab / Micro Data 06/13/25 09:47 06/13/25 09:47 Labs: Laboratory Results - last 24 hr 06/13/25 09:47: WBC 10.5, RBC 5.19, Hgb 15.2, Hct 46.7, MCV 90.0, MCH 29.3, MCHC 32.5, RDW Std Deviation 43.3, RDW Coeff of Harry 13.2, Plt Count 232, MPV 11.2, Immature Gran % (Auto) 0.300, Neut % (Auto) 70.8 H, Lymph % (Auto) 18.9 L, [place] % (Auto) 7.9, Eos % (Auto) 1.7, Baso % (Auto) 0.4, Absolute Neuts (auto) 7.4, Absolute Lymphs (auto) 1.98, Nucleated RBC % 0, Sodium 138, Potassium 3.8, Chloride 101, Carbon Dioxide 23.2, Anion Gap 15, BUN 28 H, Creatinine 1.26 H, Estim Creat Clear Calc 69.49, Est GFR (MDRD) Non-Af 61, BUN/Creatinine Ratio 21.9 H, Glucose 147 H, Calcium 9.7, Total Bilirubin 0.75, AST 28, ALT 36, Alkaline Phosphatase 65, Troponin T High Sens 21, NT pro BNP II 428, Total Protein 7.1, Albumin 4.0, Globulin 3.1, Albumin/Globulin Ratio 1.3 06/13/25 12:05: Troponin T Hi Sens 2 Hr 26 H Cardiology Labs/Tests 06/13/25 09:47: WBC 10.5, RBC 5.19, Hgb 15.2, Hct 46.7, MCV 90.0, MCH 29.3, MCHC 32.5, Plt Count 232, MPV 11.2, Immature Gran % (Auto) 0.300, Neut % (Auto) 70.8 H, Lymph % (Auto) 18.9 L, [place] % (Auto) 7.9, Eos % (Auto) 1.7, Baso % (Auto) 0.4, Absolute Neuts (auto) 7.4, Nucleated RBC % 0, Sodium 138, Potassium 3.8, Chloride 101, Carbon Dioxide 23.2, Anion Gap 15, BUN 28 H, Creatinine 1.26 H, Est GFR (MDRD) Non-Af 61, BUN/Creatinine Ratio 21.9 H, Glucose 147 H, Calcium 9.7, Total Bilirubin 0.75 Rhythm: EKG: ECHO: Stress Test: Cardiac Cath: PCI: CT Surgery: Holter monitor: EPS: PPM: CXR: Chest CT Scan: Radiography Diagnostic Testing: Radiology Impression Chest X-Ray 06/13/25 11:11 IMPRESSION: Findings suggestive of atelectasis and/or infiltrate in the posterior medial segment of the left lower lobe. Reading Location: [id number] Risk Score for UA/STEMI Assesmment (YES = 1) Risk Stratification Applicable: No
[2025-06-13 15:33] LABS: Troponin T High Sens 4 HR 21 ng/L (<=22)
[2025-06-13] MEDS: Azithromycin 500 MG in Dextrose 5%-Water (250mL Bag) 250 ML 250 MG IV (15:41)
[2025-06-13 15:45] LABS: Procalcitonin 0.17 ng/mL (<=0.10)
[2025-06-14] VITALS (7 sets, daily range): BP systolic 113–154; BP diastolic 53–99; PULSE 33–39; RESP 15–18; TEMP 36.5–37.1; O2SAT 92–96
[2025-06-14 06:59] LABS: Hematocrit 47.0 % (40-54); Hemoglobin 15.2 g/dL (13.0-16.5); Mean Corp Hgb Conc 32.3 g/dL (32-36); Mean Corpuscular Volume 90.6 fL (80-94); Mean Platelet Vol. 10.5 fl (6.2-12.0); Platelet Count 211 K/mm3 (150-450); RBC Distribution Width CV 13.0 % (11.6-14.6); RBC Distribution Width SD 43.0 fl (35.1-43.9); Red Blood Count 5.19 M/mm3 (4.6-6.2); White Blood Count 8.5 K/mm3 (4.4-11.0)
[2025-06-14 07:26] LABS: Anion Gap 13 (5-15); BUN 19 mg/dL (4-19); BUN/Creat Ratio 16.9 RATIO (10-20); Calcium,Total 9.4 mg/dL (7.6-11.0); Carbon Dioxide 25.3 mmol/L (21.0-32.0); Chloride 102 mmol/L (98-108); Cholesterol 133 mg/dL (<=200); Estimated Creatinine Clearance 76.60 ml/min (50-250); Glucose 128 mg/dL (70-99); Low Density Lipoprotein Calc. 74 mg/dL; Potassium 4.1 mmol/L (3.3-5.1); Triglycerides 71 mg/dL; Very Low Density Lipoprotein 14 mg/dL (5-40); cholesterol:hdl ratio screen 2.98
--- NOTE | 2025-06-14 10:30 | CASEMGMT ---
TUNDE [place]ENTON Assessment Face to Face with patient for initial transition planning/care coordination assessment. RN ELICEO introduced self and role at [facility], pt voices understanding. Pt is A&Ox4 and is resting comfortably in bed and is calm. Pt's and daughter @ bedside. Care providers, pharmacy, and demographics verified. Admitting dx: Mobitz II Heart Block, SOB with Exertion LACE Strata: 1 PCP: Kenya Wadsworth Specialists: [facility], [facility] Preferred Pharmacy: [facility] [place] Insurance: [employer] listed. Pt reports that he has [employer] Prescription Benefit: States none. CM to follow for Rx costs @ [place] LNOK: Jasmina (W), Corie (Daughter) Living Arrangements: Pt lives with his and daughter in a 2 story home with a ramp to enter ADLs/IADLs: Indep. 6-Click score is 24. Pt denies needing any additional therapy Transportation:Pt reports that he uses [facility] Transportation Services mainly. CM to follow for transport @ [place] DME: CPAP @ [facility] with no additional oxygen. BGM with sufficient supplies. Cane. HHC/SNF: Denies hx or needs Pt?s goal: Home Plan: Anticipate DC home with family once medically ready. Follow rx costs and transportation needs. Per the hospitalist, plan is for Pacer placement Monday. Lyme disease R/O. Pt denies further questions or concerns at this time and states that he feels safe retuning home with his family at the time of DC. Patel Rand RN, CM
--- NOTE | 2025-06-14 11:40 | EKG12_ITS ---
Test Reason : AM EKG Blood Pressure : */* mmHG Vent. Rate : 36 BPM Atrial Rate : 73 BPM P-R Int : 230 ms QRS Dur : 112 ms QT Int : 496 ms P-R-T Axes : -3 75 134 degrees QTcB Int : 383 ms Critical Test Result: Low HR , AV Block Sinus rhythm with 2nd degree A-V block with 2:1 A-V conduction Nonspecific ST and T wave abnormality Abnormal ECG When compared with ECG of 14-Jun-2025 11:47, MANUAL COMPARISON REQUIRED DATA IS UNCONFIRMED Confirmed by DEO LEW, REY ([id number]), staff editor ALLAN PINEDO ([id number]) on 06/17/2025 6:09:09 AM Referred By: STEPHANIE Confirmed By: REY DESOUZA MD
--- NOTE | 2025-06-14 13:24 | PCM.PN.CARD ---
Subjective Subjective Cough has improved. Patient does not have shortness of breath at baseline. He does have some exertional shortness of breath at this time. Continues to remain in 2-1 AV block. Objective Data Vital Signs: Vital Signs Temp Pulse Resp BP Pulse Ox O2 Del Method 97.7 F L 33 L 15 113/53 L 92 Room Air 06/14/25 03:22 06/14/25 03:22 06/14/25 03:22 06/14/25 03:22 06/14/25 03:22 06/14/25 07:50 Oxygen Delivery Method Room Air Weight: 260 lb 12.909 oz Body Mass Index (BMI) 37.4 Intake & Output: Intake and Output for Last 24 Hours 06/12/25 06/13/25 06/14/25 23:59 23:59 23:59 Intake Total 700 / 700 480 / 480 Balance 700 / 700 480 / 480 Lab / Micro Data 06/14/25 06:35 06/14/25 06:35 Labs: Laboratory Results - last 24 hr 06/13/25 09:47: Hemoglobin A1c 7.8 H, Procalcitonin 0.17 H 06/13/25 15:11: Troponin T Hi Sens 4Hr 21 06/13/25 16:37: POC Glucose 128 H 06/13/25 20:46: POC Glucose 167 H 06/14/25 06:35: WBC 8.5, RBC 5.19, Hgb 15.2, Hct 47.0, MCV 90.6, MCH 29.3, MCHC 32.3, RDW Std Deviation 43.0, RDW Coeff of Harry 13.0, Plt Count 211, MPV 10.5, Sodium 140, Potassium 4.1, Chloride 102, Carbon Dioxide 25.3, Anion Gap 13, BUN 19, Creatinine 1.14, Estim Creat Clear Calc 76.60, Est GFR (MDRD) Non-Af 69, BUN/Creatinine Ratio 16.9, Glucose 128 H, Calcium 9.4, Triglycerides 71, Cholesterol 133, LDL Cholesterol, Calc 74, VLDL Cholesterol 14, HDL Cholesterol 45, Cholesterol/HDL Ratio 2.98 06/14/25 06:39: POC Glucose 137 H 06/14/25 12:13: POC Glucose 127 H Cardiology Labs/Tests 06/13/25 09:47: Hemoglobin A1c 7.8 H 06/14/25 06:35: WBC 8.5, RBC 5.19, Hgb 15.2, Hct 47.0, MCV 90.6, MCH 29.3, MCHC 32.3, Plt Count 211, MPV 10.5, Sodium 140, Potassium 4.1, Chloride 102, Carbon Dioxide 25.3, Anion Gap 13, BUN 19, Creatinine 1.14, Est GFR (MDRD) Non-Af 69, BUN/Creatinine Ratio 16.9, Glucose 128 H, Calcium 9.4, Triglycerides 71, Cholesterol 133, VLDL Cholesterol 14, HDL Cholesterol 45, Cholesterol/HDL Ratio 2.98 Rhythm: EKG: ECHO: Stress Test: Cardiac Cath: PCI: CT Surgery: Holter monitor: EPS: PPM: CXR: Chest CT Scan: Physical Exam Const alert and oriented x3 HEENT normocephalic Eyes no scleral icterus Resp normal respiratory effort and clear to auscultation bilaterally Cardio regular rate Extremity no pedal edema Assessment & Plan Assessment/Plan (1) Shortness of breath: (2) Bradycardia: (3) Partial atrioventricular block with 2:1 ratio determined by electrocardiography: (4) Chest tightness: (5) LV dysfunction: PLAN: Plan Patient has shortness of breath and also exertional chest tightness. He has LV dysfunction by echo done earlier this month. Patient underwent coronary angiography to see if he has significant CAD that could explain his symptoms and 2-1 AV block. Coronary angiography did not reveal significant CAD. He had mild CAD that can be treated medically. Likely pacemaker early next week. Charges/Coding Visit Charges Inpatient E&M: 37164 Init Hosp L1
--- NOTE | 2025-06-14 14:34 | PCM.PN.HOSP ---
Reason for Visit Chief Complaint: Shortness of breath with exertion and productive cough Subjective Subjective Patient was seen and examined today, he remains in a 2-1 second-degree AV block at a rate of about 35-40, patient is asymptomatic at this time. I talked with the patient and his family who are in the room at the time of my examination. I reviewed the patient's chest x-ray, I am not concerned with the diagnosis of pneumonia although I have elected to keep the patient on oral antibiotics for now, patient has no fever, chills, or cough. Objective Data Objective Data Vital Signs: Vital Signs Temp Pulse Resp BP Pulse Ox O2 Del Method 97.7 F L 33 L 15 113/53 L 92 Room Air 06/14/25 03:22 06/14/25 03:22 06/14/25 03:22 06/14/25 03:22 06/14/25 03:22 06/14/25 07:50 Oxygen Delivery Method Room Air Weight: 118.3 kg Body Mass Index (BMI) 37.4 Intake & Output: Intake and Output for Last 24 Hours 06/12/25 06/13/25 06/14/25 23:59 23:59 23:59 Intake Total 700 / 700 480 / 480 Balance 700 / 700 480 / 480 Lab / Micro Data 06/14/25 06:35 06/14/25 06:35 Labs: Laboratory Results - last 24 hr 06/13/25 09:47: Hemoglobin A1c 7.8 H, Procalcitonin 0.17 H 06/13/25 15:11: Troponin T Hi Sens 4Hr 21 06/13/25 16:37: POC Glucose 128 H 06/13/25 20:46: POC Glucose 167 H 06/14/25 06:35: WBC 8.5, RBC 5.19, Hgb 15.2, Hct 47.0, MCV 90.6, MCH 29.3, MCHC 32.3, RDW Std Deviation 43.0, RDW Coeff of Harry 13.0, Plt Count 211, MPV 10.5, Sodium 140, Potassium 4.1, Chloride 102, Carbon Dioxide 25.3, Anion Gap 13, BUN 19, Creatinine 1.14, Estim Creat Clear Calc 76.60, Est GFR (MDRD) Non-Af 69, BUN/Creatinine Ratio 16.9, Glucose 128 H, Calcium 9.4, Triglycerides 71, Cholesterol 133, LDL Cholesterol, Calc 74, VLDL Cholesterol 14, HDL Cholesterol 45, Cholesterol/HDL Ratio 2.98 06/14/25 06:39: POC Glucose 137 H 06/14/25 12:13: POC Glucose 127 H Physical Exam Const alert, oriented x3, no apparent distress and healthy appearing General Appearance: cooperative, well kempt and well developed Orientation / Consciousness: awake, oriented to person, oriented to place and oriented to time HEENT normocephalic, head/scalp atraumatic and moist oral mucous membranes Eyes PERRL, EOMs intact bilaterally and conjunctivae normal Neck supple, no JVD, thyroid normal and no carotid bruits General: trachea midline Resp normal respiratory effort, no retractions, no use of accessory muscles and clear to auscultation bilaterally Auscultation: Negative for rales, rhonchi or wheezes Cardio regular rate, regular rhythm, S1 normal heart sound, S2 normal heart sound, no murmurs, no rub and no gallops Cardio Narrative: Patient is bradycardic, monitor shows a 2-1 AV block GI normal to inspection, nondistended, normoactive bowel sounds, soft to palpation, non-tender and non-distended Extremity no clubbing, cyanosis or edema Skin no rashes or lesions noted General Skin Exam: no breakdown Neuro oriented x3, CN's II-XII intact bilaterally, no focal motor deficits and no sensory deficits noted Sensorium / Orientation: awake and alert Speech: speech normal Psych affect normal Assessment & Plan Assessment/Plan (1) Bradycardia: PLAN: Plan 1. 2 1 AV block with bradycardia-patient will have a pacemaker inserted on 06/16/2025. #2 atelectasis versus pneumonic infiltrate in the posterior medial segment of the left lower lobe-I have elected to keep the patient on doxycycline for now #3 BPH-patient is on Flomax #4 type 2 diabetes-patient is on fingerstick blood sugars with sliding scale insulin #5 hyperlipidemia-patient is on Lipitor #6 essential hypertension-patient's lisinopril is being held at this time due to normal blood pressure. Total clinical time spent by myself addressing the patient's medical issues, reviewing all of his data, and collaborating with the patient's care team: 35 minutes Charges/Coding Visit Charges Inpatient E&M: 38399 Subs Hosp L2
--- NOTE | 2025-06-14 16:53 | CL.D_ITS ---
Patient Name: IBETH RAGSDALE Study Date: 06/13/2025 Performing: Adrienne Espinoza MD Ht: 70 inches 177.8 cm : 1955 Wt: 262.5 lbs 118.9 kg Age: 69 Gender: male BSA: 2.34 PROCEDURE(S) PERFORMED [id number])[facility] CLINICAL PROFILE AND INDICATIONS Indications: Chest pain, shortness of breath, LV dysfunction Heart Failure: None CONCLUSIONS Nonobstructive CAD RECOMMENDATIONS Medical therapy for CAD DESCRIPTION OF PROCEDURE The patient arrived to the procedure lab. The risks and benefits of the procedure as well as a full description of our services here and current unavailability of surgical backup were fully explained to the patient and/or their significant other prior to the catheterization. The Timeout was completed, verifying the correct patient and procedure. The patient's procedural site was prepped and draped in the usual fashion. Local anesthetic was given subcutaneously to right radial region with Lidocaine 2%. Using a modified Seldinger technique, arterial access was obtained via the right radial artery, a 6Fr sheath was inserted. Left Coronary Artery selective angiography was performed in multiple views using a 5 Fr. JL3.5 catheter. Right Coronary Artery selective angiography was then performed in multiple views using a 5 Fr. JR 4 catheter.The arterial sheath was pulled and a TR Band was applied for hemostasis CORONARY ANGIOGRAPHY DOMINANCE: Right Dominant LEFT MAIN: Mild luminal irregularities LEFT ANTERIOR DESCENDING ARTERY: Mild diffuse disease CIRCUMFLEX ARTERY: Mild luminal irregularities RAMUS: 30 % Stenosis RIGHT CORONARY ARTERY: Mild diffuse disease COMPLICATIONS No Complications PROCEDURE MEDICATIONS Oxygen: 2 L/min via nasal cannula Aspirin (325mg) 1 Tabs PO @ 06/13/2025 13:25:37 Heparin given IA 06/13/2025 13:49:46 SUMMARY OF HEMODYNAMIC DATA Time AIR REST ECG 13:28:33 AO 148/64 (90) SA 13:50:03 Signed By Adrienne Espinoza MD On 06/14/2025 16:52:46 Adrienne Espinoza MD
[2025-06-14] MEDS: 0.9% Saline Lock 10 ML Syringe IV (21:30)
[2025-06-15 00:08] VITALS: RESP 18
[2025-06-15 02:10] VITALS: BP 128/76; PULSE 62; RESP 16; TEMP 36.2; O2SAT 94
--- NOTE | 2025-06-15 06:56 | PCM.PN.CARD ---
Subjective Subjective No significant shortness of breath. Cough has also improved. Tele this morning reveals a heart rate of 62 bpm. Objective Data Vital Signs: Vital Signs Temp Pulse Resp BP Pulse Ox O2 Del Method FiO2 97.1 F L 62 16 128/76 H 94 CPAP 21 06/15/25 02:10 06/15/25 02:10 06/15/25 02:10 06/15/25 02:10 06/15/25 02:10 06/15/25 02:10 06/15/25 00:08 Oxygen Delivery Method CPAP Weight: 260 lb 12.909 oz Body Mass Index (BMI) 37.4 Intake & Output: Intake and Output for Last 24 Hours 06/13/25 06/14/25 06/15/25 23:59 23:59 23:59 Intake Total 700 / 700 840 / 840 Balance 700 / 700 840 / 840 Lab / Micro Data 06/14/25 06:35 06/14/25 06:35 Labs: Laboratory Results - last 24 hr 06/14/25 06:35: WBC 8.5, RBC 5.19, Hgb 15.2, Hct 47.0, MCV 90.6, MCH 29.3, MCHC 32.3, RDW Std Deviation 43.0, RDW Coeff of Harry 13.0, Plt Count 211, MPV 10.5, Sodium 140, Potassium 4.1, Chloride 102, Carbon Dioxide 25.3, Anion Gap 13, BUN 19, Creatinine 1.14, Estim Creat Clear Calc 76.60, Est GFR (MDRD) Non-Af 69, BUN/Creatinine Ratio 16.9, Glucose 128 H, Calcium 9.4, Triglycerides 71, Cholesterol 133, LDL Cholesterol, Calc 74, VLDL Cholesterol 14, HDL Cholesterol 45, Cholesterol/HDL Ratio 2.98 06/14/25 06:39: POC Glucose 137 H 06/14/25 12:13: POC Glucose 127 H 06/14/25 15:51: POC Glucose 147 H 06/14/25 21:28: POC Glucose 139 H Cardiology Labs/Tests 06/14/25 06:35: WBC 8.5, RBC 5.19, Hgb 15.2, Hct 47.0, MCV 90.6, MCH 29.3, MCHC 32.3, Plt Count 211, MPV 10.5, Sodium 140, Potassium 4.1, Chloride 102, Carbon Dioxide 25.3, Anion Gap 13, BUN 19, Creatinine 1.14, Est GFR (MDRD) Non-Af 69, BUN/Creatinine Ratio 16.9, Glucose 128 H, Calcium 9.4, Triglycerides 71, Cholesterol 133, VLDL Cholesterol 14, HDL Cholesterol 45, Cholesterol/HDL Ratio 2.98 Rhythm: EKG: ECHO: Stress Test: Cardiac Cath: PCI: CT Surgery: Holter monitor: EPS: PPM: CXR: Chest CT Scan: Physical Exam Const alert and oriented x3 HEENT normocephalic Eyes no scleral icterus Resp normal respiratory effort and clear to auscultation bilaterally Cardio regular rate Extremity no pedal edema Assessment & Plan Assessment/Plan (1) Shortness of breath: (2) Bradycardia: (3) Partial atrioventricular block with 2:1 ratio determined by electrocardiography: (4) Chest tightness: (5) LV dysfunction: PLAN: Plan Patient has shortness of breath and also exertional chest tightness. He has LV dysfunction by echo done earlier this month. Patient underwent coronary angiography to see if he has significant CAD that could explain his symptoms and 2-1 AV block. Coronary angiography did not reveal significant CAD. He had mild CAD that can be treated medically. Telemetry this morning reveals improved heart rate. Will reevaluate tomorrow. Initially we were considering proceeding with pacemaker tomorrow. If he has no further episodes of 2-1 AV block then we could consider sending him home with an event monitor. Charges/Coding Visit Charges Inpatient E&M: 41619 Subs Hosp L1
[2025-06-15 08:10] VITALS: BP 144/82; PULSE 63; RESP 15; TEMP 36.8; O2SAT 95
--- NOTE | 2025-06-15 10:45 | PCM.PN.HOSP ---
Reason for Visit Chief Complaint: Shortness of breath with exertion and productive cough Subjective Subjective Patient was seen and examined today, he remains in second-degree AV block with a 2-1 conduction, patient request to be placed back on his hydrochlorothiazide which she takes at home for blood pressure Objective Data Objective Data Vital Signs: Vital Signs Temp Pulse Resp BP Pulse Ox O2 Del Method FiO2 98.3 F 63 15 144/82 H 95 Room Air 21 06/15/25 08:10 06/15/25 08:10 06/15/25 08:10 06/15/25 08:10 06/15/25 08:10 06/15/25 08:10 06/15/25 00:08 Oxygen Delivery Method Room Air Weight: 118.3 kg Body Mass Index (BMI) 37.4 Intake & Output: Intake and Output for Last 24 Hours 06/13/25 06/14/25 06/15/25 23:59 23:59 23:59 Intake Total 700 / 700 840 / 840 Balance 700 / 700 840 / 840 Lab / Micro Data 06/14/25 06:35 06/14/25 06:35 Labs: Laboratory Results - last 24 hr 06/14/25 12:13: POC Glucose 127 H 06/14/25 15:51: POC Glucose 147 H 06/14/25 21:28: POC Glucose 139 H 06/15/25 06:20: POC Glucose 140 H Physical Exam Narrative alert, oriented x3, no apparent distress and healthy appearing General Appearance: cooperative, well kempt and well developed Orientation / Consciousness: awake, oriented to person, oriented to place and oriented to time HEENT normocephalic, head/scalp atraumatic and moist oral mucous membranes Eyes PERRL, EOMs intact bilaterally and conjunctivae normal Neck supple, no JVD, thyroid normal and no carotid bruits General: trachea midline Resp normal respiratory effort, no retractions, no use of accessory muscles and clear to auscultation bilaterally Auscultation: Negative for rales, rhonchi or wheezes Cardio regular rate, regular rhythm, S1 normal heart sound, S2 normal heart sound, no murmurs, no rub and no gallops Cardio Narrative: Patient is bradycardic, monitor shows a 2-1 AV block GI normal to inspection, nondistended, normoactive bowel sounds, soft to palpation, non-tender and non-distended Extremity no clubbing, cyanosis or edema Skin no rashes or lesions noted General Skin Exam: no breakdown Neuro oriented x3, CN's II-XII intact bilaterally, no focal motor deficits and no sensory deficits noted Sensorium / Orientation: awake and alert Speech: speech normal Psych affect normal Assessment & Plan Assessment/Plan (1) Partial atrioventricular block with 2:1 ratio determined by electrocardiography: (2) Bradycardia: PLAN: Plan 1. 2 1 AV block with bradycardia-patient will have a pacemaker inserted on 06/16/2025. #2 atelectasis versus pneumonic infiltrate in the posterior medial segment of the left lower lobe-I have elected to keep the patient on doxycycline for now #3 BPH-patient is on Flomax #4 type 2 diabetes-patient is on fingerstick blood sugars with sliding scale insulin #5 hyperlipidemia-patient is on Lipitor #6 essential hypertension-I will start the patient back on his hydrochlorothiazide, I will also have him resume lisinopril 10 mg daily. Total clinical time spent by myself addressing the patient's medical issues, reviewing all of his data, and collaborating with the patient's care team: 35 minutes Charges/Coding Visit Charges Inpatient E&M: 00785 Subs Hosp L2
[2025-06-15 14:10] VITALS: BP 134/67; PULSE 40; RESP 15; TEMP 36.7; O2SAT 96
[2025-06-15 14:24] VITALS: BP 134/67; PULSE 40; RESP 15; TEMP 36.7; O2SAT 96
[2025-06-15 20:30] VITALS: BP 131/69; PULSE 72; RESP 16; TEMP 36.7; O2SAT 95
[2025-06-16] VITALS (15 sets, daily range): BP systolic 115–142; BP diastolic 67–93; PULSE 61–74; RESP 14–18; TEMP 36.2–36.8; O2SAT 90–95
--- NOTE | 2025-06-16 07:28 | EKG12_ITS ---
Test Reason : ARRYTH Blood Pressure : */* mmHG Vent. Rate : 40 BPM Atrial Rate : 68 BPM P-R Int : * ms QRS Dur : 160 ms QT Int : 556 ms P-R-T Axes : 17 81 90 degrees QTcB Int : 453 ms Critical Test Result: Low HR , AV Block Sinus rhythm with 2nd degree A-V block (Mobitz II) Right bundle branch block Abnormal ECG When compared with ECG of 13-Jun-2025 10:24, MANUAL COMPARISON REQUIRED DATA IS UNCONFIRMED Confirmed by DEO LEW, REY ([id number]), web content editor ALLAN PINEDO ([id number]) on 06/17/2025 6:10:13 AM Referred By: Confirmed By: REY DESOUZA MD
--- NOTE | 2025-06-16 07:41 | PCM.PN.CARD ---
Subjective Subjective Patient seen and evaluated. Doing better this morning. Objective Data Vital Signs: Vital Signs Temp Pulse Resp BP Pulse Ox O2 Del Method FiO2 97.2 F L 74 18 142/91 H 92 CPAP 21 06/16/25 04:25 06/16/25 04:25 06/16/25 04:25 06/16/25 04:25 06/16/25 04:25 06/16/25 04:25 06/16/25 00:18 Oxygen Delivery Method CPAP Weight: 260 lb 12.909 oz Body Mass Index (BMI) 37.4 Intake & Output: Intake and Output for Last 24 Hours 06/14/25 06/15/25 06/16/25 23:59 23:59 23:59 Intake Total 840 / 840 720 / 720 Balance 840 / 840 720 / 720 Lab / Micro Data 06/14/25 06:35 06/14/25 06:35 Labs: Laboratory Results - last 24 hr 06/15/25 11:42: POC Glucose 165 H 06/15/25 17:08: POC Glucose 201 H 06/15/25 20:33: POC Glucose 186 H 06/16/25 06:05: POC Glucose 155 H Cardiology Labs/Tests Rhythm: EKG: ECHO: Stress Test: Cardiac Cath: PCI: CT Surgery: Holter monitor: EPS: PPM: CXR: Chest CT Scan: Physical Exam Const alert, oriented x3 and no apparent distress General Appearance: cooperative HEENT hearing grossly normal bilaterally Head and Scalp: atraumatic Eyes EOMs intact bilaterally Neck General: normal visual inspection Chest inspection of chest normal and palpation of chest normal Resp normal respiratory effort Auscultation: clear to auscultation bilaterally Cardio regular rate, regular rhythm, S1 normal heart sound and S2 normal heart sound Jugular Venous Distention: JVD GI normal to inspection, nondistended, normoactive bowel sounds Extremity normal capillary refill and no pedal edema Peripheral Pulses: Yes pulses 2+ throughout and femoral pulses present Skin no rashes or lesions noted Neuro oriented x3 and CN's II-XII intact bilaterally Psych Appearance: grossly normal and appropriate Assessment & Plan Assessment/Plan (1) Partial atrioventricular block with 2:1 ratio determined by electrocardiography: PLAN: Patient has intermittent 2-1 AV block. Etiology is not entirely clear but at this time it appears to be persisting and it is felt that he would benefit from a permanent pacemaker. Risk benefits alternatives discussed with the patient and his family and they are in agreement. Will proceed this afternoon. (2) LV dysfunction: PLAN: Mild left ventricular systolic dysfunction. After pacemaker placement we will proceed with guideline directed medical therapy. Thank you for allowing me to participate in the care of your patient. Please don't hesitate to call if any issues arise.
[2025-06-16] MEDS: 0.9% Saline Lock 10 ML Syringe IV (08:46)
[2025-06-16] MEDS: 0.9% Normal Saline (1000mL) 1,000 ML 60 ML IV (08:46)
--- NOTE | 2025-06-16 11:48 | NURSING ---
report called to pietro in laboratory inspector
--- NOTE | 2025-06-16 12:36 | PCM.PN.HOSP ---
Reason for Visit Chief Complaint: Shortness of breath with exertion and productive cough Subjective Subjective Patient was seen and examined today, he will be going down for insertion of a pacemaker. Patient voices no complaints to this examiner. Objective Data Objective Data Vital Signs: Vital Signs Temp Pulse Resp BP Pulse Ox O2 Del Method FiO2 98.1 F 68 18 135/81 H 92 Room Air 21 06/16/25 08:44 06/16/25 08:44 06/16/25 08:44 06/16/25 08:44 06/16/25 08:44 06/16/25 08:45 06/16/25 00:18 Oxygen Delivery Method Room Air Weight: 118.3 kg Body Mass Index (BMI) 37.4 Intake & Output: Intake and Output for Last 24 Hours 06/14/25 06/15/25 06/16/25 23:59 23:59 23:59 Intake Total 840 / 840 720 / 720 Balance 840 / 840 720 / 720 Lab / Micro Data 06/14/25 06:35 06/14/25 06:35 Labs: Laboratory Results - last 24 hr 06/15/25 17:08: POC Glucose 201 H 06/15/25 20:33: POC Glucose 186 H 06/16/25 06:05: POC Glucose 155 H 06/16/25 11:03: POC Glucose 163 H Physical Exam Narrative alert, oriented x3, no apparent distress and healthy appearing General Appearance: cooperative, well kempt and well developed Orientation / Consciousness: awake, oriented to person, oriented to place and oriented to time HEENT normocephalic, head/scalp atraumatic and moist oral mucous membranes Eyes PERRL, EOMs intact bilaterally and conjunctivae normal Neck supple, no JVD, thyroid normal and no carotid bruits General: trachea midline Resp normal respiratory effort, no retractions, no use of accessory muscles and clear to auscultation bilaterally Auscultation: Negative for rales, rhonchi or wheezes Cardio regular rate, regular rhythm, S1 normal heart sound, S2 normal heart sound, no murmurs, no rub and no gallops Cardio Narrative: Patient is bradycardic, monitor shows a 2-1 AV block GI normal to inspection, nondistended, normoactive bowel sounds, soft to palpation, non-tender and non-distended Extremity no clubbing, cyanosis or edema Skin no rashes or lesions noted General Skin Exam: no breakdown Neuro oriented x3, CN's II-XII intact bilaterally, no focal motor deficits and no sensory deficits noted Sensorium / Orientation: awake and alert Speech: speech normal Psych affect normal Assessment & Plan Assessment/Plan (1) Partial atrioventricular block with 2:1 ratio determined by electrocardiography: (2) Bradycardia: PLAN: Plan 1. 2 1 AV block with bradycardia-patient will have a pacemaker inserted on 06/16/2025. #2 atelectasis versus pneumonic infiltrate in the posterior medial segment of the left lower lobe-I have elected to keep the patient on doxycycline for now #3 BPH-patient is on Flomax #4 type 2 diabetes-patient is on fingerstick blood sugars with sliding scale insulin #5 hyperlipidemia-patient is on Lipitor #6 essential hypertension-patient is on lisinopril 10 mg daily and hydrochlorothiazide 25 mg daily presently Total clinical time spent by myself addressing the patient's medical issues, reviewing all of his data, and collaborating with the patient's care team: 35 minutes Charges/Coding Visit Charges Inpatient E&M: 52886 Subs Hosp L2
--- NOTE | 2025-06-16 13:42 | CL.IE_ITS ---
Patient: IBETH RAGSDALE Study Date: 06/16/2025 Performing: Nishant Pham MD : [id number] Age: 69 Gender: male PROCEDURES PERFORMED [id number])INITIAL PACER INSERT+DUAL LEADS INDICATIONS Mobitz (type II) AV block PROCEDURE DETAILS The patient was brought to the Catheterization Lab in the postabsorptive nonsedated state. Informed consent was obtained prior to the procedure. Local anesthetic was given subcutaneously to the left subclavian region with Lidocaine 2%. Access was achieved and a guidewire was advanced into the left subclavian vein. Incision was made to the left subclavicular area. PPM ventricular lead was inserted / positioned to right ventricular apex. PPM ventricular lead testing performed. PPM ventricular lead testing performed. PPM atrial lead was inserted / positioned to the right atrial appendage. PPM atrial lead testing performed. The Ventricular PM lead sutured in place with 2-0 Silk. The Atrial lead sutured in place with 2-0 Silk. PPM generator was attached to the lead(s) and inserted into the pocket. Device pocket was irrigated with antibiotic. PPM generator was then interrogated by the senior java programmer analyst. Subcutaneous closure was completed with 3-0 Vicryl. Skin closure was completed with 4-0 Vicryl. Instrument, sponge, and needle counts were noted to be normal. The patient tolerated the procedure well. Estimated Blood Loss: < 10 mls IMPLANTED / EX-PLANTED DEVICES IMPLANTED DEVICE(S): PPM Ventricular lead - Religious Education Director: Pratt Parature, Model # INGEVITY- 59cm , Serial # [id number] PPM Atrial lead - Religious Education Director: Pratt Parature, Model # INGEVITY- 52cm , Serial # [id number] PPM Generator - Religious Education Director: [employer], Model # ESSENTIO MRI EL , Serial # [id number] DEVICE PARAMETERS ATRIAL LEAD PARAMETERS: P wave (mV) - 2.3 Current (mA) - 0.9 threshold (V) - 0.6 impedence (OHMS) - 662 10V test; no diaphragmatic capture VENTRICULAR LEAD PARAMETERS: R wave (mV) - 16.9 current (mA) - 0.7 threshold (V) - 0.6 impedence (OHMS) - 877 10V test; no diaphragmatic capture DEVICE PARAMETERS: Mode - DDD lower rate - 60 upper rate - 130 CONCLUSIONS / RECOMMENDATIONS Device Conclusions: Successful implantation of a dual chamber pacemaker Device Recommendations: Follow up with Primary Care Physician PROCEDURE MEDICATIONS Versed 1 mg IV Fentanyl 50 mcg IV Versed 1 mg IV Fentanyl 50 mcg IV Oxygen: 2 L/min via simple mask Antibiotic given in appropriate timeframe. Ancef 2 Gm IV @ 06/16/2025 12:00:21 Signed By Nishant Pham MD On 06/16/2025 13:42:05 Nishant Pham MD
[2025-06-17] VITALS (8 sets, daily range): BP systolic 115–135; BP diastolic 66–79; PULSE 65–72; RESP 15–18; TEMP 36.8–37.1; O2SAT 92–94
[2025-06-17] MEDS: 0.9% Normal Saline (1000mL) 1,000 ML 60 ML IV (02:26)
--- NOTE | 2025-06-17 05:00 | RAD_ITS ---
PROCEDURE: CHEST PA AND LATERAL 06/17/2025 REASON FOR EXAM: POST PERMANENT ICD/PACEMAKER TECHNIQUE: CHEST PA AND LATERAL COMPARISON: Chest radiograph on 06/13/2025. FINDINGS: AICD is in good position. Unchanged bilateral basilar atelectatic airspace disease, more prominent on the left side. There is no demonstrated pleural abnormality. Enlarged cardiac silhouette. Normal mediastinum and tammy. Normal visualized pulmonary arteries. Atheromatous plaques of the visualized aortic arch and descending thoracic aorta. Diffuse spondylosis of the visualized thoracic spine. Normal visualized ribs, clavicles. Degenerative joint disease. There is no demonstrated abnormality of the visualized soft tissue structures of the upper abdomen. RAD/Chest PA and Lateral IMPRESSION: AICD is in good position. Unchanged bilateral basilar atelectatic airspace disease, more prominent on the left side. Reading [facility] [address]
--- NOTE | 2025-06-17 07:48 | PCM.PN.CARD ---
Subjective Subjective Patient seen and evaluated. Doing well no complaints Objective Data Vital Signs: Vital Signs Temp Pulse Resp BP Pulse Ox O2 Del Method FiO2 98.2 F 65 15 115/66 93 Room Air 21 06/17/25 04:12 06/17/25 04:12 06/17/25 04:12 06/17/25 04:12 06/17/25 04:12 06/17/25 04:12 06/17/25 01:38 Oxygen Delivery Method Room Air Weight: 260 lb 12.909 oz Body Mass Index (BMI) 37.4 Intake & Output: Intake and Output for Last 24 Hours 06/15/25 06/16/25 06/17/25 23:59 23:59 23:59 Intake Total 720 / 720 1129 / 1129 371 / 371 Balance 720 / 720 1129 / 1129 371 / 371 Lab / Micro Data 06/14/25 06:35 06/14/25 06:35 Labs: Laboratory Results - last 24 hr 06/16/25 11:03: POC Glucose 163 H 06/16/25 14:11: POC Glucose 149 H 06/16/25 17:23: POC Glucose 257 H 06/16/25 21:22: POC Glucose 104 06/17/25 06:16: POC Glucose 127 H Cardiology Labs/Tests Rhythm: EKG: ECHO: Stress Test: Cardiac Cath: PCI: CT Surgery: Holter monitor: EPS: PPM: CXR: Chest CT Scan: Radiography Diagnostic Testing: Radiology Impression Chest X-Ray 06/17/25 05:00 IMPRESSION: AICD is in good position. Unchanged bilateral basilar atelectatic airspace disease, more prominent on the left side. Reading Location: [place] [id number] Physical Exam Const alert, oriented x3 and no apparent distress General Appearance: cooperative HEENT hearing grossly normal bilaterally Head and Scalp: atraumatic Eyes EOMs intact bilaterally Neck General: normal visual inspection Chest inspection of chest normal and palpation of chest normal Resp normal respiratory effort Auscultation: clear to auscultation bilaterally Cardio regular rate, regular rhythm, S1 normal heart sound and S2 normal heart sound Jugular Venous Distention: JVD GI normal to inspection, nondistended, normoactive bowel sounds Extremity normal capillary refill and no pedal edema Peripheral Pulses: Yes pulses 2+ throughout and femoral pulses present Skin no rashes or lesions noted Neuro oriented x3 and CN's II-XII intact bilaterally Psych Appearance: grossly normal and appropriate Assessment & Plan Assessment/Plan (1) Partial atrioventricular block with 2:1 ratio determined by electrocardiography: PLAN: Patient has intermittent 2-1 AV block. Patient is status post pacemaker placement. Pacemaker appears to be functioning well chest x-ray is under good position. Was scheduled for outpatient follow-up. (2) LV dysfunction: PLAN: Mild left ventricular systolic dysfunction. Thank you for allowing me to participate in the care of your patient. Please don't hesitate to call if any issues arise.
[2025-06-17 08:26] LABS: Hematocrit 45.6 % (40-54); Hemoglobin 14.7 g/dL (13.0-16.5); Immature Granulocytes Count 0.030 X10^3/uL (0.0-0.0); Mean Corp Hgb Conc 32.2 g/dL (32-36); Mean Corpuscular Volume 91.2 fL (80-94); Mean Platelet Vol. 10.2 fl (6.2-12.0); NRBC Flagged by Analyzer 0 % (0-5); Platelet Count 218 K/mm3 (150-450); RBC Distribution Width CV 13.1 % (11.6-14.6); RBC Distribution Width SD 44.2 fl (35.1-43.9); Red Blood Count 5.00 M/mm3 (4.6-6.2); White Blood Count 9.3 K/mm3 (4.4-11.0)
[2025-06-17 08:47] LABS: AST(SGOT) 19 U/L (<=37); Alanine Aminotransfer ALT/SGPT 20 U/L (<=46); Albumin, Serum 3.6 g/dL (3.4-4.8); Alkaline Phosphatase 54 U/L (40-129); Anion Gap 9 (5-15); BUN 19 mg/dL (4-19); BUN/Creat Ratio 17.5 RATIO (10-20); Calcium,Total 8.9 mg/dL (7.6-11.0); Carbon Dioxide 24.6 mmol/L (21.0-32.0); Chloride 107 mmol/L (98-108); Estimated Creatinine Clearance 81.61 ml/min (50-250); Globulin 2.5 g/dL (2.2-4.2); Glucose 126 mg/dL (70-99); Potassium 4.1 mmol/L (3.3-5.1)
--- NOTE | 2025-06-17 09:02 | DCINST_ITS ---
Discharge Instructions DC O2, CPAP, BIPAP needs Home O2 Discharge instructions: No Dressing / Incision Discharge Activity: May Not Drive May shower in (days): 2 Additional Activity Instructions:: May shower or bathe on [day 3]. Do not scrub the incision or soak in the tub. Just wash with soap and let the water run over the incision. Gently pat dry with towel. Medications: Take your pain medication as directed. Refer to your discharge instruction sheet for a list of medications you are to take. Dressing / Incision Call your doctor if your incision/area has: Continuous Slow Oozing, Sudden Increased Bleeding, Increased Pain/ Swelling, Increased Redness, Foul Smelling Discharge and Swelling at the incision site Call your doctor if you observe: Fever of 101 or Higher, Shortness of breath, Dizziness, Fainting spells, Swelling in the ankles, Chest pain, Prolonged hiccupping and Increased palpitations (irregular heartbeat) Suture Line Care: Avoid Pulling/Pushing and Avoid Pinching/Bending Additional Dressing/Incision Instructions:: When dressing is removed, wash and dry incision. Keep covered with a light bandage if it is rubbing against your clothing. Do not cover the incision with an airtight bandage. Change the bandage daily. Do not remove steri strips. The strips will fall off on their own. Follow Up Care Please Follow Up With: Nishant Pham MD When: Pacer follow-up on June 24 at 1 PM Test Results: Test results from this visit will be discussed in further detail at your follow- up appointment, if applicable. Discharge Plan Admission Admit Date/Time: 06/13/25 14:15 Attending Provider: Allison Craig Primary Care Provider: Kenya Wadsworth NP Consulting Providers: Sheila Espinoza; Yo Steiner; Kota Chaidez Discharge Orders/Prescriptions Prescriptions: No Action lisinopril 20 mg tablet 20 mg PO QDAY metformin 500 mg tablet 500 mg PO BID tamsulosin 0.4 mg capsule 0.4 mg PO QHS curlin 1 cap PO DAILY hydrochlorothiazide 25 mg tablet 25 mg PO DAILY Referrals / Follow Up: Yossi Rucker DO [Non-Staff] -
[2025-06-17] MEDS: 0.9% Saline Lock 10 ML Syringe IV (09:50)
--- NOTE | 2025-06-17 11:04 | PCM.DC.SUM ---
Providers Date of Admission: 06/13/25 Date of Discharge: 06/17/25 Primary Care Physician: FILIBERTO Corcoran Consultations 06/14/25 06:41 Consult: Cardiology Routine Consulting Provider: Sheila Espinoza Reason for Consult: Heart block EMERGENT Consult: No MD Notified: Yes Date Notified: 06/14/25 Time Notified: 06:41 Method of Notification: ED Physician Initiated Reason For Visit: MOBITZ TYPE II HEART BLOCK & SOB W/EXERTION Diagnosis Discharge Diagnosis (1) Partial atrioventricular block with 2:1 ratio determined by electrocardiography: Status: Acute Code(s): I44.30 - Unspecified atrioventricular block (2) LV dysfunction: Status: Acute Code(s): I51.9 - Heart disease, unspecified Medications at Discharge Home Medications lisinopril 20 mg tablet 20 mg PO QDAY bp 07/29/24 metformin 500 mg tablet 500 mg PO BID diabetes 07/29/24 tamsulosin 0.4 mg capsule 0.4 mg PO QHS urine flow 02/19/25 curlin 1 cap PO DAILY herbal diabetic med 06/13/25 hydrochlorothiazide 25 mg tablet 25 mg PO DAILY blood pressure 06/15/25 Hospital Course Operations - (Pacemaker placement) Procedures 2-D Echocardiogram, Cardiac catheterization, EKG and - (Chest x-ray) Summary of Care Provided Minutes Spent on Discharge: 28 Hospital Course: Mr. Rand is a 69-year-old white Gnosticist male who presents emergency department [facility] on 06/13/2025 with a chief complaint of shortness of breath with exertion and productive cough. He had been complaining of some shortness of breath with exertion for some time. An echo was done on 05/26/2025 that showed an EF of 40% with stage I diastolic dysfunction, mild to moderate global hypokinesis of the LV and no valvular issues or other concerning findings. He presents emergency department with worsening shortness of breath especially noted with exertion and a productive cough that been ongoing for about a week prior to presentation. In the emergency department and EKG revealed Mobitz type II heart block with heart rates in the 30s to 40s. He was normotensive at the time. He was afebrile and oxygen saturations were stable on room air and were throughout the entire hospitalization. Vital signs on presentation showed temperature 98.3, heart rate 40, respiratory rate 18, blood pressure 158/64 and pulse ox was 95% on room air. CBC was unremarkable. Chemistry panel showed mildly elevated BUN and creatinine 28 and 1.26 which appears to be close to his baseline. Blood glucose was 147. BNP was 428. Liver functions were unremarkable. Initial troponin was 26. Chest x-ray showed atelectasis in the posterior medial segment of the left lower lobe. He was admitted to the telemetry floor with a consultation cardiology for Mobitz type II heart block and consideration for pacer placement. Heart block was consistent with 2-1 AV block. Cardiac catheterization was done and showed nonobstructive coronary artery disease. Lyme's titers were sent since Lyme disease can induce heart block. They were still pending at the time of discharge. He did receive empiric doxycycline however was fairly asymptomatic with regards to this so Doxy was held at discharge and will follow-up with titers. I did discuss with the family and if his titers are positive I will restart the doxycycline and complete treatment however history is not consistent with Lyme disease. Given his heart block and unremarkable cardiac catheterization for significant obstructive disease, he was taken for pacemaker placement on 06/16/2025. Postprocedure he did well and pacer was functioning well. Postprocedure chest x-ray was unremarkable and outpatient follow-up has been scheduled for June 24 at 1 in the afternoon with Dr. Pham. No significant medication changes were made at the time of discharge. Patient was discharged home in stable condition on 06/17/2025 and is to follow-up with his primary care physician as needed. Discharge diagnoses: Partial AV block with 2:1 ratio Pacemaker placement DM-2 Essential hypertension BPH with obstruction Obesity Physical Exam Const alert, oriented x3, no apparent distress, no limitations and well nourished; Negative for average body habitus Constitutional Narrative: Elderly, Gnosticist, obese, male, sitting up in a chair at the bedside, family bedside, patient appears comfortable nontoxic General Appearance: cooperative, comfortable, well kempt and well developed Exam Limitations: no limitations Nutritional Appearance: obese HEENT normocephalic, head/scalp atraumatic and moist oral mucous membranes HEENT Narrative: Mild hearing loss, dentition is poor, Mallampati is 2-3, no thrush Resp normal respiratory effort, no retractions, no use of accessory muscles and clear to auscultation bilaterally Resp Narrative: Diffusely diminished but clear Auscultation: Negative for rales, rhonchi or wheezes Cardio regular rate, regular rhythm, S1 normal heart sound, S2 normal heart sound, no murmurs, no rub, no gallops and no clicks GI normal to inspection, nondistended, normoactive bowel sounds, soft to palpation and non-tender Extremity Extremity Narrative: Left upper extremity in sling, incision bandage clean dry and intact, trace lower extremity edema, no clubbing or cyanosis noted Skin no rashes or lesions noted, no jaundice, no petechiae and no mottling Neuro oriented x3 and no focal motor deficits Neuro Narrative: All extremities moves symmetrically other than left upper extremity which is in sling due to pacer placement, able to move distal left upper extremity without difficulty Speech: speech normal Psych affect normal Psych Narrative: Very pleasant, interacts appropriately Weight / BMI Weight Weight: 118.3 kg Body Mass Index (BMI) 37.4 ABG / Lab / Microbiology Data 06/17/25 08:12 06/17/25 08:12 Laboratory: Laboratory Results - last 24 hr 06/16/25 11:03: POC Glucose 163 H 06/16/25 14:11: POC Glucose 149 H 06/16/25 17:23: POC Glucose 257 H 06/16/25 21:22: POC Glucose 104 06/17/25 06:16: POC Glucose 127 H 06/17/25 08:12: WBC 9.3, RBC 5.00, Hgb 14.7, Hct 45.6, MCV 91.2, MCH 29.4, MCHC 32.2, RDW Std Deviation 44.2 H, RDW Coeff of Harry 13.1, Plt Count 218, MPV 10.2, Immature Gran % (Auto) 0.300, Neut % (Auto) 69.5, Lymph % (Auto) 19.5, Falls % (Auto) 7.6, Eos % (Auto) 2.6, Baso % (Auto) 0.5, Absolute Neuts (auto) 6.5, Absolute Lymphs (auto) 1.82, Nucleated RBC % 0, Sodium 140, Potassium 4.1, Chloride 107, Carbon Dioxide 24.6, Anion Gap 9, BUN 19, Creatinine 1.07, Estim Creat Clear Calc 81.61, Est GFR (MDRD) Non-Af 74, BUN/Creatinine Ratio 17.5, Glucose 126 H, Calcium 8.9, Total Bilirubin 0.63, AST 19, ALT 20, Alkaline Phosphatase 54, Total Protein 6.1, Albumin 3.6, Globulin 2.5, Albumin/Globulin Ratio 1.5 Radiography Diagnostic Testing: Radiology Impression Chest X-Ray 06/17/25 05:00 IMPRESSION: AICD is in good position. Unchanged bilateral basilar atelectatic airspace disease, more prominent on the left side. Reading [facility] Instructions Discharge Activity: Return to Normal Activity May shower in (days): 2 Additional Activity Instructions: May shower or bathe on [day 3]. Do not scrub the incision or soak in the tub. Just wash with soap and let the water run over the incision. Gently pat dry with towel. Medications: Take your pain medication as directed. Refer to your discharge instruction sheet for a list of medications you are to take. Call your doctor if your incision/area has: Continuous Slow Oozing, Sudden Increased Bleeding, Increased Pain/ Swelling, Increased Redness, Foul Smelling Discharge and Swelling at the incision site Call your doctor if you observe: Fever of 101 or Higher, Shortness of breath, Dizziness, Fainting spells, Swelling in the ankles, Chest pain, Prolonged hiccupping and Increased palpitations (irregular heartbeat) Suture Line Care: Avoid Pulling/Pushing and Avoid Pinching/Bending Additional Dressing/Incision Instructions: When dressing is removed, wash and dry incision. Keep covered with a light bandage if it is rubbing against your clothing. Do not cover the incision with an airtight bandage. Change the bandage daily. Do not remove steri strips. The strips will fall off on their own. DC O2, CPAP, BIPAP Needs Home O2 Discharge instructions: No Please Follow Up With: Nishant Pham MD When: Pacer follow-up on June 24 at 1 PM Meaningful Use Info Meaningful Use Meaningful Use Diagnoses (Choose all that apply): None applicable Discharge Plan Admission Admit Date/Time: 06/13/25 14:15 Primary Reason for Your Visit: Shortness of Breath Attending Provider: Allison Craig Primary Care Provider: Kenya Wadsworth NP Consulting Providers: Sheila Espinoza; Yo Steiner; Kota Chaidez Discharge Orders/Prescriptions Prescriptions: Continued lisinopril 20 mg tablet 20 mg PO QDAY metformin 500 mg tablet 500 mg PO BID tamsulosin 0.4 mg capsule 0.4 mg PO QHS curlin 1 cap PO DAILY hydrochlorothiazide 25 mg tablet 25 mg PO DAILY Referrals / Follow Up: Nishant Pham MD [Med Staff - Active Staff] - 06/24/25 1:00 pm (PACER f/u) Yossi Rucker DO [Non-Staff] - See Referral Note (as needed) Disposition Disposition (needs filled in before D/C Order can be placed): Home, Self Care Charges/Coding Visit Charges Inpatient E&M: 04530 Disch Hosp
--- NOTE | 2025-06-17 11:13 | PHA.DC.MR.R ---
Pharmacy [place] Med Reconciliation Pharmacy Service has performed discharge medication reconciliation for this patient. The patient's discharge medication list was reviewed for discrepancies and discrepancies were resolved. Medications at Discharge Home Medications lisinopril 20 mg tablet 20 mg PO QDAY bp 07/29/24 metformin 500 mg tablet 500 mg PO BID diabetes 07/29/24 tamsulosin 0.4 mg capsule 0.4 mg PO QHS urine flow 02/19/25 curlin 1 cap PO DAILY herbal diabetic med 06/13/25 hydrochlorothiazide 25 mg tablet 25 mg PO DAILY blood pressure 06/15/25
--- NOTE | 2025-06-17 11:40 | CASEMGMT ---
Patient has order for discharge. RN CM in to discuss needs at discharge. Patient states he would like to use [facility] for discharge and would need it for 3 people. RN CM updated patient that we could see if [facility] is available but cannot guarantee if they could take patient and family. RN CM inquired if patient had driving service that they use, patient states they have a tow bar driver if needed. Patient denied further needs or concerns. TUNDE FENTON updated PCU Weight Control Engineer to inquire about [facility] at discharge, per corporate secretary [facility] is not available, patient's nurse updated and states he will updated patient that [facility] is not available.
[2025-06-18 00:08] LABS: Lyme Scn Total Ab w/Rflx Negative (Negative)
== END 2025-06-17 12:41 | disposition home or self-care (01) | DRG 242 ==
LOC: ED 11:02 → CLSP 13:00 → PCU 14:31
PROVIDERS: Internal Medicine; Admitting Provider Hospitalist; Emergency Provider Emergency Medicine; PCP Nurse Practitioner Family; Visit Provider Internal Medicine
DX: I44.1 Atrioventricular block, second degree (principal); J18.9 Pneumonia, unspecified organism; J98.11 Atelectasis; N13.8 Other obstructive and reflux uropathy; E11.9 Type 2 diabetes mellitus without complications; I10 Essential (primary) hypertension; Z68.37 Body mass index [BMI] 37.0-37.9, adult; E78.5 Hyperlipidemia, unspecified; G47.33 Obstructive sleep apnea (adult) (pediatric); I25.10 Atherosclerotic heart disease of native coronary artery without angina pectoris; E66.812 Obesity, class 2; Z79.84 Long term (current) use of oral hypoglycemic drugs; Z79.899 Other long term (current) drug therapy; N40.1 Benign prostatic hyperplasia with lower urinary tract symptoms; R07.89 Other chest pain
CPT/HCPCS: 33208; 36415; 71045; 71046; 80048; 80053; 80061; 82962; 83036; 83880; 84145; 84484; 85025; 85027; 86617; 86618; 93005; 93454; 94660; 94668; 99152; 99153; 99252; 99285; Q9967; A4216; C1769; C1894; G0463; J0696; J1938

== ENCOUNTER → 2025-08-14 | Outpatient (CLI) | payer OTHER, SELFPAY | END | disposition home or self-care (01) | LOC: SL 08:39 | PROVIDERS: PCP Nurse Practitioner Family; Referring Provider Nurse Practitioner Family; Visit Provider Nurse Practitioner Family | DX: G47.33 Obstructive sleep apnea (adult) (pediatric) (principal) | CPT/HCPCS: 94762 ==